=== PATIENT | female | born 1940 | race Caucasian/White ===

== ENCOUNTER 2017-01-23 15:52 | Inpatient (IN) | payer MEDICARE, OTHER ==
--- NOTE | ~2017-01-23 | OP ---
Record Of Operation [facility] [address] [address] NAME: STEFANIA COLES : [birth year] STATUS : ADM Christoph PAT#: [id number] AGE: 76 ADM/REG DATE : 01/23/17 MR#: [id number] REPORT SERV DATE: 01/24/17 DICTATED BY: SOHAN MARKHAM DATE: 01/24/17 REPORT STATUS : Draft TRANSCRIBED BY: MODL DATE: 01/24/17 DATE OF PROCEDURE: 01/23/2017 INDICATIONS: Acute gastrointestinal bleeding and shock. PROCEDURE IN DETAIL: After informed consent was obtained from the patient's , procedure was performed in the emergency room on an emergent basis. The left chest was prepared with chlorhexidine. The patient was completely draped, and using an Arrow triple-lumen catheter kit, triple-lumen catheter was placed over a guidewire in the left subclavian vein in the usual fashion. The vein was entered without any difficulty or bleeding. The lines were flushed, and catheter was secured in place. The patient tolerated the procedure well. There were no complications. We will check a postprocedure chest x-ray, which has been ordered already. /SHAMIKA Sohan Markham M.D. / [id number]
--- NOTE | ~2017-01-23 | EGD ---
EGD REPORT [facility] [address] [address] NAME: STEFANIA RIVER : 42 STATUS : ADM IN PAT#: [id number] AGE: 76 ADM/REG DATE : 01/24/17 MR#: [id number] REPORT SERV DATE: 01/27/17 DICTATED BY: RICARDO CHOW III DATE: 01/27/17 REPORT STATUS : Draft [facility]: [facility] DATE: 01/27/17 Endoscopy Center Patient Name: Stefania River Date of : 1940 Attending MD: RICARDO CHOW III, MD Procedure Date No Time: 01/24/2017 Procedure: Upper GI endoscopy Indications: Acute post hemorrhagic anemia, Hematemesis Medicines: Propofol per Anesthesia, General Anesthesia Complications: No immediate complications. Procedure: After obtaining informed consent, the endoscope was passed under direct vision. Throughout the procedure, the patient's blood pressure, pulse, and oxygen saturations were monitored continuously. The GIF H190 [id number] was introduced through the mouth, and advanced to the third part of duodenum. The upper GI endoscopy was accomplished with ease. The patient tolerated the procedure well. Findings: LA Grade D (one or more mucosal breaks involving at least 75% of esophageal circumference) esophagitis with no bleeding was found in the entire esophagus. A medium-sized hiatus hernia was present. Diffuse mildly erythematous mucosa without bleeding was found in the gastric antrum. Biopsies were taken with a cold forceps for histology. One non-bleeding cratered duodenal ulcer with pigmented material was found in the second part of the duodenum. The lesion was 20 mm in largest dimension. Biopsies were taken with a cold forceps for histology. Impression: - LA Grade D reflux esophagitis. - Hiatus hernia. - Erythematous mucosa in the antrum. Biopsied. - One duodenal ulcer. Biopsied. Recommendation: - Await pathology results. Procedure Code(s): --- Professional --- 40476, Esophagogastroduodenoscopy, flexible, transoral; with biopsy, single or multiple Diagnosis Code(s): --- Professional --- K21.0, Gastro-esophageal reflux disease with esophagitis K44.9, Diaphragmatic hernia without obstruction or gangrene EGD REPORT [address] [address] NAME: STEFANIA RIVER : [birth year] STATUS : ADM IN [facility]#: [id number] AGE: 76 ADM/REG DATE : 01/24/17 MR#: [id number] REPORT SERV DATE: 01/27/17 DICTATED BY: RICARDO CHOW III DATE: 01/27/17 REPORT STATUS : Draft TRANSCRIBED BY: [employer] DATE: 01/27/17 K31.9, Disease of stomach and duodenum, unspecified K26.9, Duodenal ulcer, unspecified as acute or chronic, without hemorrhage or perforation D62, Acute posthemorrhagic anemia K92.0, Hematemesis CPT copyright 2013 [employer] [place] [employer]. All rights reserved. The codes documented in this report are preliminary and upon wellfield technician review may be revised to meet current compliance requirements. RICARDO CHOW III, MD 01/24/2017 2:10 AM This report has been signed electronically. Number of Addenda: 0 Note Initiated On: 01/24/2017 1:35 AM Scope Withdrawal Time 0 hours 0 minutes 0 seconds [address] [place] [address]
--- NOTE | ~2017-01-23 | EGD ---
EGD REPORT [facility] [address] [address] NAME: STEFANIA RIVER : 42 STATUS : ADM Christoph PAT#: [id number] AGE: 76 ADM/REG DATE : 01/23/17 MR#: [id number] REPORT SERV DATE: 01/24/17 DICTATED BY: RICARDO CHOW III DATE: 01/24/17 REPORT STATUS : Draft [facility] DATE: 01/24/17 Endoscopy Center Patient Name: Stefania River Date of : 1940 Attending MD: RICARDO CHOW III, MD Procedure Date No Time: 01/24/2017 Procedure: Upper GI endoscopy Indications: Acute post hemorrhagic anemia, Hematemesis Medicines: Propofol per Anesthesia, General Anesthesia Complications: No immediate complications. Procedure: After obtaining informed consent, the endoscope was passed under direct vision. Throughout the procedure, the patient's blood pressure, pulse, and oxygen saturations were monitored continuously. The GIF H190 [id number] was introduced through the mouth, and advanced to the third part of duodenum. The upper GI endoscopy was accomplished with ease. The patient tolerated the procedure well. Findings: LA Grade D (one or more mucosal breaks involving at least 75% of esophageal circumference) esophagitis with no bleeding was found in the entire esophagus. A medium-sized hiatus hernia was present. Diffuse mildly erythematous mucosa without bleeding was found in the gastric antrum. Biopsies were taken with a cold forceps for histology. One non-bleeding cratered duodenal ulcer with pigmented material was found in the second part of the duodenum. The lesion was 20 mm in largest dimension. Biopsies were taken with a cold forceps for histology. Impression: - LA Grade D reflux esophagitis. - Hiatus hernia. - Erythematous mucosa in the antrum. Biopsied. - One duodenal ulcer. Biopsied. Recommendation: - Await pathology results. Procedure Code(s): --- Professional --- 48928, Esophagogastroduodenoscopy, flexible, transoral; with biopsy, single or multiple Diagnosis Code(s): --- Professional --- K21.0, Gastro-esophageal reflux disease with esophagitis K44.9, Diaphragmatic hernia without obstruction or gangrene EGD REPORT [address] [address] NAME: STEFANIA RIVER : 42 STATUS : ADM Christoph PAT#: [id number] AGE: 76 ADM/REG DATE : 01/23/17 MR#: [id number] REPORT SERV DATE: 01/24/17 DICTATED BY: RICARDO HCOW III DATE: 01/24/17 REPORT STATUS : Draft TRANSCRIBED BY: [employer] DATE: 01/24/17 K31.9, Disease of stomach and duodenum, unspecified K26.9, Duodenal ulcer, unspecified as acute or chronic, without hemorrhage or perforation D62, Acute posthemorrhagic anemia K92.0, Hematemesis CPT copyright 2013 [employer]. All rights reserved. The codes documented in this report are preliminary and upon impregnating machine operator review may be revised to meet current compliance requirements. RICARDO CHOW III, MD 01/24/2017 2:10 AM This report has been signed electronically. Number of Addenda: 0 Note Initiated On: 01/24/2017 1:35 AM Scope Withdrawal Time 0 hours 0 minutes 0 seconds [address] [place] [address]
--- NOTE | ~2017-01-23 | DS ---
Discharge Summary [place] [address] [facility] [place]. [address] NAME: STEFANIA COLES : 42 STATUS : DIS IN PAT#: [id number] AGE: 76 ADM/REG DATE : 01/24/17 MR#: [id number] REPORT SERV DATE: 01/28/17 DICTATED BY: CLEMENTE BLACK DATE: 01/27/17 REPORT STATUS : Draft TRANSCRIBED BY: MODCodie DATE: 01/27/17 ADMISSION DATE: 01/24/2017 DISCHARGE DATE: 01/27/2017 PROCEDURES DONE: 1. On 01/23/2017 chest x-ray: Lungs are clear. Heart size is normal. 2. On 01/23/2017 CT abdomen and pelvis: No acute abdominal or pelvic pathology. No bowel obstruction. Moderate size hiatal hernia. Percutaneous gastrostomy tube in satisfactory position. Moderate diverticulosis. Sigmoid colon, no acute diverticulitis pattern. Nonvisualized gallbladder. Probable chronic mild osteonecrosis superior right femoral head, although well preserved femoral head contour. Nonvisualized gallbladder. Motion artifact lower chest and upper mid abdomen, been hardening artifact from the patient's arms by her side. 3. On 01/24/2017 chest x-ray: Left cervical central line catheter in place. Appearing to be in satisfactory position. No postprocedure pneumothorax seen. Bibasilar atelectasis and probable left pleural fluid. Atherosclerotic change of the thoracic aorta. 4. On 01/27/2017 chest x-ray: Internal development with mild left basilar consolidation with atelectasis with trace left pleural effusion. Interval removal of left subclavian central venous catheter. No pneumothorax. 5. On 01/28/2017 upper endoscopy:. 6. Findings: LA grade D one or more mucosal breaks involving at least 75% of esophageal circumference esophagitis with no bleeding was found in the entire esophagus. Medium- sized hiatal hernia present. Diffuse mildly erythematous mucosa without bleeding was found in the gastric antrum. Biopsies taken with cold forceps for histology. One nonbleeding crater duodenal ulcer with pigmented material was found in the second part of duodenum. The lesion was 20 mm in largest dimension. Biopsies were taken with cold forceps for histology. CONSULTS: Gianfranco Edmondson M.D. for GI REASON FOR ADMISSION: Vomiting dark-maroonish blood. HISTORY OF PRESENT ILLNESS: A 76-year-old white female with past medical history of CVA x3, chronic respiratory failure status post trach, COPD, hypertension, hyperlipidemia, status post PEG, presenting with vomiting dark-maroonish blood, unknown duration. The patient was admitted for further evaluation of upper GI bleed. Dr. Edmondson was consulted for GI and the patient underwent an EGD. The patient was previously had an EGD done at [facility] showing duodenal ulcer. An EGD was done by Dr. Edmondson at [facility] shows the same duodenal ulcer, but no active bleeding. Furthermore, the patient's endoscopy shows grade D esophageal circumference esophagitis, but no bleeding at all. Even noted duodenal ulcer was present, it did not have any bleed. Biopsies were taken. During the hospital stay, the patient's H and H has been stable. GI felt the patient can be safely discharged and follow up as an outpatient. DISPOSITION: The patient feels fine, no complaint. Discharge Summary [address] [address] NAME: STEFANIA COLES : 42 STATUS : DIS IN PAT#: [id number] AGE: 76 ADM/REG DATE : 01/24/17 MR#: [id number] REPORT SERV DATE: 01/28/17 DICTATED BY: CLEMENTE BLACK DATE: 01/27/17 REPORT STATUS : Draft TRANSCRIBED BY: SHAMIKA DATE: 01/27/17 ACTIVITY: As tolerated. DIET: Via PEG. INSTRUCTIONS UPON DISCHARGE: The patient will follow up with GI within two weeks' time. MEDICATIONS UPON DISCHARGE: 1. Plaquenil 200 mg p.o. daily. 2. Lopressor 50 mg p.o. b.i.d. 3. Carafate 1 g/10 mL suspension p.o. q.6 hours. 4. Prevacid 30 mg via PEG b.i.d. 5. Prednisone 5 mg p.o. daily. 6. DuoNeb inhaler p.r.n. 7. Vitamin C 500 mg p.o. daily. DIAGNOSES UPON DISCHARGE: 1. Vomiting dark blood secondary to esophagitis grade D. 2. Esophagitis grade D. 3. Duodenal ulcer. 4. History of cerebrovascular accident x3. 5. Chronic respiratory failure status post trach. 6. Chronic obstructive pulmonary disease. 7. Hypertension. 8. Hyperlipidemia. 9. Status post PEG. FBJ/MODL Clemente Black MD / [id number] CC: MD Aram Cortez M.D.
--- NOTE | ~2017-01-23 | HP ---
History And Physical [place] [address] [facility] [place]. [address] NAME: STEFANIA COLES : 42 STATUS : ADM Christoph PAT#: [id number] AGE: 76 ADM/REG DATE : 01/23/17 MR#: [id number] REPORT SERV DATE: 01/24/17 DICTATED BY: SOHAN WATSON DATE: 01/24/17 REPORT STATUS : Draft TRANSCRIBED BY: MODL DATE: 01/24/17 DATE OF ADMISSION: 01/23/2017 CHIEF COMPLAINT: Vomiting dark maroonish blood. HISTORY OF PRESENT ILLNESS: This is a 76-year-old female, who has had a very significant past medical history, has had massive CVA 3 years ago followed by respiratory failure needing a tracheostomy. Since then, she has had contractions of her body and about two to three weeks ago she was taken to [place] with similar complaints of vomiting dark bloody material. She had been seen by Gastroenterology there and had upper endoscopy and had a duodenal ulcer. This had been cauterized. This was all from the patient's , we are still waiting on records from [place] to reach us. Since discharge from there, she had been doing well until today, she suddenly started having emesis of dark reddish appearing bloody material. He knew what was going on and brought the patient to the emergency room here. In the emergency room, the vomitus and her stools were gastroccult positive and Hemoccult positive, and Hospitalist Service is asked to admit her for further evaluation and treatment. At the time of my evaluation the patient was alert and awake, but not very communicative, which is her usual state. According to her , she has not had any chest pain or palpitations. She does not have any respiratory difficulty, although she has copious amounts of greenish secretion with cough coming out of her tracheostomy stoma. She has had no fevers, night sweats, or weight loss. She has not had any recent falls or loss of consciousness. No history of nausea, vomiting. She did have vomiting as described above early this morning of dark maroonish blood. No history of hematemesis or hematochezia. No other history of recent travel or exposures. PAST MEDICAL HISTORY: Significant for history of CVA 3 years ago followed by respiratory failure requiring tracheostomy. She had a prolonged course after that and has had spastic contractures in her body. She has COPD, history of alcohol use in the past, history of hypertension, hyperlipidemia, has a PEG tube placed, and has a history of hiatal hernia as well. SOCIAL HISTORY: She does not smoke, drink, or use recreational drugs at this time. FAMILY HISTORY: Noncontributory. MEDICATIONS: At home were reviewed by me in the chart today and reordered by me. REVIEW OF SYSTEMS: As in history of present illness. All other systems were reviewed in detail and are quite unremarkable. PHYSICAL EXAMINATION: GENERAL: This is a pleasant 76-year-old, not in any acute distress. She is not verbal. She does not follow any commands. She is noncommunicative. History And Physical [address] [address] NAME: STEFANIA COLES : 42 STATUS : ADM Christoph PAT#: [id number] AGE: 76 ADM/REG DATE : 01/23/17 MR#: [id number] REPORT SERV DATE: 01/24/17 DICTATED BY: SOHAN WATSON DATE: 01/24/17 REPORT STATUS : Draft TRANSCRIBED BY: SHAMIKA DATE: 01/24/17 HEENT: Head appears to be atraumatic, normocephalic. NECK: Supple with no jugular venous distention, lymphadenopathy, or thyromegaly. Pupils were equal, reacting to light and accommodating. LUNGS: Auscultation of her lungs revealed fair air entry bilaterally with no wheezes, rubs, or crackles. HEART: Heart sounds were regular with no murmurs, rubs, or gallops. ABDOMEN: Soft. Bowel sounds are present. EXTREMITIES: Extremities are all in protective supports to prevent ulceration. She, however, has a drain in the right elbow to a wound VAC for decubitus ulcers. NEUROLOGIC: As mentioned above. She does not communicate or follow commands. Her vital signs today showed temperature of 97.1 degrees upon arrival, respirations were 16 a minute, and heart rate was 99 a minute. Blood pressure upon arrival was 118/57, and oxygen saturations were 94% breathing 2-3 L via nasal cannula. LABORATORY DATA: Reviewed on the [employer] system showed a pH of 7.52, pCO2 was 31, PaO2 of 66 and bicarb was 24.8. This was on 2 L of oxygen via nasal cannula. Sodium is 136, potassium 4.5, chloride 98, and CO2 of 27, BUN was 47 with a creatinine of 1.24. Her blood glucose was 91. [place] [address], hemoglobin was 9.8, hematocrit 29.8, and platelet count was 606,000. Urinalysis did not reveal any gross pathology. Films of the chest x-ray were reviewed by me on the PACS today and also her CT of the abdomen and pelvis were also reviewed. Per my interpretation the chest x-ray showed normal bony architecture with no cardiomegaly. There are chronic interstitial markings without any infiltrates or pleural effusions seen. CT of the abdomen and pelvis did not reveal any acute pathology. There is a PEG tube placed and moderate hiatal hernia seen as well. IMPRESSION: 1. Acute gastrointestinal bleeding. 2. Peptic ulcer disease, had a recent EGD at [place] showing duodenal ulcer. 3. Leukocytosis. 4. Osteoarthritis. 5. Chronic obstructive pulmonary disease. 6. Essential hypertension. 7. Hyperlipidemia. 8. Hiatal hernia. PLAN: We will admit the patient to the Medical Intermediate Care Unit for close monitoring. While here she continued to have bloody emesis twice even when I was in the room with her. Her vital signs remained stable even after this, so we did a stat a hemoglobin and hematocrit level. It had dropped from 11.2 to 9.6 today in a very short time. I decided to call Gastroenterology on-call and spoke with Dr. Edmondson, who decided to come to come in right away. She needed a better IV access placed and possibly taken for endoscopy right away. He was also interested in protecting her airway, if she were to have more emesis. Meanwhile, we will type cross and transfuse as needed. Her leukocytosis is of unclear etiology. It could be from the GI bleed itself, but we will go ahead and obtain cultures and start her on vancomycin and Zosyn right away. We will also start her on blood pressure control and SCDs for DVT prophylaxis. We will also start a Protonix infusion at this time after the bolus. History And Physical [address] [place] [address] NAME: STEFANIA COLES KATI : 44 STATUS : ADM Christoph PAT#: [id number] AGE: 76 ADM/REG DATE : 01/23/17 MR#: [id number] REPORT SERV DATE: 01/24/17 DICTATED BY: SOHAN WATSON DATE: 01/24/17 REPORT STATUS : Draft TRANSCRIBED BY: SHAMIKA DATE: 01/24/17 She will be kept n.p.o. After discussions with Dr. Edmondson, the patient was transferred to a bigger room in the emergency room, so central line could be placed. I did explain all of this to the patient's , who was following closely understanding what was going on and asking appropriate questions. His questions were answered and he is agreeable to the above recommendations. Please see today's orders for details. Hospitalist Service will be following the patient during her stay here. Total critical care time spent with the patient was 60 minutes. /SHAMIKA Sohan Watson M.D. / [id number] CC: MD Aram Cortez M.D.
[2017-01-23 16:48] LABS: BASOPHILS 0.4 %; BASOPHILS ABSOLUTE 0.07 10/3/uL (0.0-0.16); EOSINOPHILS 0.5 %; EOSINOPHILS ABSOLUTE 0.09 10/3/uL (0.0-0.53); ER CBC TAT 0 Hrs 09 Mins; HEMATOCRIT 34.4 % (36.0-48.0); HEMOGLOBIN 11.2 g/dL (12.0-16.0); IMMATURE GRANULOCYTES 0.5 %; IMMATURE GRANULOCYTES ABSOLUTE 0.09 10/3/uL (0.0-0.11); LYMPHOCYTES 6.3 %; MANUAL DIFF NO %; MEAN CORPUS HGB CONC 32.6 g/dL (32.0-36.0); MEAN CORPUSCULAR HEMOGLOB 28.6 pg (26.0-34.0); MEAN PLATELET VOLUME 8.2 fL (9.2-13.0); MONOCYTES ABSOLUTE 1.72 10/3/uL (0.21-1.20); NEUTROPHILS 83.3 %; NEUTROPHILS ABSOLUTE 15.96 10/3/uL (2.02-8.40); PLATELET COUNT 606 10/3/uL (150-400); RBC DISTRIBUTION WIDTH 15.3 % (12.0-16.0); RED CELL COUNT 3.91 10/6/uL (4.0-5.6); WHITE BLOOD CELLS 19.1 10/3/uL (4.5-10.5)
[2017-01-23 16:59] LABS: A/G RATIO 0.5 (0.7-1.9); ALBUMIN 2.3 G/DL (3.5-5.0); ALKALINE PHOSPHATASE 109 U/L (45-117); BUN (BLOOD UREA NITROGEN) 47 MG/DL (6-23); CALCIUM, SERUM 8.4 MG/DL (8.5-10.4); CHLORIDE, SERUM 98 MMOL/L (96-112); CO2 (CARBON DIOXIDE) 27 MMOL/L (24-34); CREATININE 1.24 MG/DL (0.55-1.02); GFR AFRICAN AMERICAN 50 ML/MIN (>=60); GFR NON AFRICAN AMERICAN 43 ML/MIN (>=60); GLOBULIN 4.4 G/DL (2.5-4.1); GLUCOSE, SERUM 91 MG/DL (60-99); POTASSIUM, SERUM 4.5 MMOL/L (3.5-5.3); SGOT(AST) 18 U/L (5-40); SGPT(ALT) 22 U/L (5-65); SODIUM, SERUM 136 MMOL/L (135-148); TOTAL BILIRUBIN 0.4 MG/DL (0-1.2); TOTAL PROTEIN 6.7 G/DL (6.0-8.5)
[2017-01-23 17:07] LABS: BAND NEUTROPHILS 3 %; BASOPHILS 1 %; BASOPHILS ABSOLUTE (CALC) 0.19 10/3/uL (0.0-0.16); ER DIFF TAT 0 Hrs 28 Mins; LYMPHOCYTES 2 %; LYMPHOCYTES ABSOLUTE (CALC) 0.38 10/3/uL (0.67-4.30); MONOCYTES 3 %; MONOCYTES ABSOLUTE (CALC) 0.57 10/3/uL (0.21-1.20); NEUTROPHILS ABSOLUTE (CALC) 17.95 10/3/uL (2.02-8.40); PLATELET ESTIMATE INC (ADEQUATE); SEGMENTED NEUTROPHIL (0) 91 %; TOTAL NUCLEATED CELLS 100
[2017-01-23 17:09] LABS: MACROCYTES 1+ (5-10/OIF) (0-5/OIF)
[2017-01-23 19:31] LABS: BE (BASE EXCESS) 2.3 MEQ/L (0 +/- 2.5); CARBOXYHEMOGLOBIN 1.2 % (0-3); DEVICE NC; HCO3 (ACTUAL BICARBONATE) 24.8 MEQ/L (23-27); HEMOBLOGIN CONTENT 10.8 G/DL (12-16); INSTRUMENT SERIAL # 8087; METHEMOGLOBIN 0.2 % (0-3); O2 CONTENT 13.9 VOL% (18-24); OPERATOR ID 334499; PCO2 (CO2 TENSION) 31 MMHG (35-45); PO2 (O2 TENSION) 66 MMHG (79-93); SAMPLE Arterial; pH 7.52 (7.37-7.43)
[2017-01-23 19:57] LABS: LACTATE 0.8 MMOL/L (0.3-2.4)
[2017-01-23 20:08] LABS: PROCALCITONIN 0.17 ng/mL (<0.5)
[2017-01-23 20:14] LABS: ASCORBIC ACID (UR NOT ORDER) 40 (NEG); BILIRUBIN, URINE NEGATIVE (NEG); KETONE, URINE NEGATIVE (NEG); NITRITE (URINE) NEG (NEG); WBC (NOT ORDERED) (RFLEX) 4 (0-5)
[2017-01-23 20:17] LABS: LEUKOCYTE ESTERASE(NOT OR TRACE (NEG)
[2017-01-23] MEDS ORDERED: BACDS PEG (23:12)
[2017-01-23] MEDS ORDERED: P5 PO (23:15)
[2017-01-23] MEDS ORDERED: VITC500 PO (23:15)
[2017-01-23] MEDS ORDERED: DUONEB INH (23:15)
[2017-01-23] MEDS ORDERED: LOP50 PO (23:16)
[2017-01-23] MEDS ORDERED: ZOCOR20 PO (23:16)
[2017-01-23] MEDS ORDERED: PLAQ200B PO (23:17)
[2017-01-23 23:45] LABS: HEMOGLOBIN 9.8 g/dL (12.0-16.0)
[2017-01-23 23:47] LABS: HEMATOCRIT 29.8 % (36.0-48.0)
[2017-01-24 06:04] LABS: BASOPHILS 0.3 %; BASOPHILS ABSOLUTE 0.04 10/3/uL (0.0-0.16); EOSINOPHILS 0.7 %; HEMOGLOBIN 8.7 g/dL (12.0-16.0); IMMATURE GRANULOCYTES 0.5 %; IMMATURE GRANULOCYTES ABSOLUTE 0.07 10/3/uL (0.0-0.11); LYMPHOCYTES 9.7 %; LYMPHOCYTES ABSOLUTE 1.38 10/3/uL (0.67-4.30); MEAN CORPUS HGB CONC 33.1 g/dL (32.0-36.0); MEAN CORPUSCULAR HEMOGLOB 29.1 pg (26.0-34.0); MEAN PLATELET VOLUME 8.1 fL (9.2-13.0); MONOCYTES 7.8 %; MONOCYTES ABSOLUTE 1.11 10/3/uL (0.21-1.20); NEUTROPHILS ABSOLUTE 11.54 10/3/uL (2.02-8.40); PLATELET COUNT 452 10/3/uL (150-400); RBC DISTRIBUTION WIDTH 15.5 % (12.0-16.0); WHITE BLOOD CELLS 14.2 10/3/uL (4.5-10.5)
[2017-01-24 06:05] LABS: HEMATOCRIT 26.3 % (36.0-48.0); MANUAL DIFF NO %; RED CELL COUNT 2.99 10/6/uL (4.0-5.6)
[2017-01-24 06:12] LABS: CHLORIDE, SERUM 109 MMOL/L (96-112); CO2 (CARBON DIOXIDE) 24 MMOL/L (24-34); GFR AFRICAN AMERICAN 57 ML/MIN (>=60); GFR NON AFRICAN AMERICAN 49 ML/MIN (>=60); PHOSPHORUS, SERUM 3.6 MG/DL (2.5-4.5); POTASSIUM, SERUM 4.2 MMOL/L (3.5-5.3)
[2017-01-24 06:14] LABS: BUN (BLOOD UREA NITROGEN) 43 MG/DL (6-23); CALCIUM, SERUM 7.2 MG/DL (8.5-10.4); GLUCOSE, SERUM 67 MG/DL (60-99); SODIUM, SERUM 143 MMOL/L (135-148)
[2017-01-24 10:08] LABS: HEMATOCRIT 26.9 % (36.0-48.0); HEMOGLOBIN 8.8 g/dL (12.0-16.0)
[2017-01-24 14:30] LABS: A/G RATIO 0.5 (0.7-1.9); ALBUMIN 1.8 G/DL (3.5-5.0); ALKALINE PHOSPHATASE 83 U/L (45-117); GLOBULIN 3.6 G/DL (2.5-4.1); PREALBUMIN 17.9 MG/DL (17.0-43.0); SGOT(AST) 20 U/L (5-40); SGPT(ALT) 19 U/L (5-65); TOTAL BILIRUBIN 0.4 MG/DL (0-1.2); TOTAL PROTEIN 5.4 G/DL (6.0-8.5)
[2017-01-24 16:12] LABS: HEMATOCRIT 25.6 % (36.0-48.0); HEMOGLOBIN 8.3 g/dL (12.0-16.0)
[2017-01-24 22:28] LABS: HEMATOCRIT 25.6 % (36.0-48.0); HEMOGLOBIN 8.3 g/dL (12.0-16.0)
[2017-01-25 04:58] LABS: BASOPHILS 0.3 %; BASOPHILS ABSOLUTE 0.04 10/3/uL (0.0-0.16); EOSINOPHILS 1.8 %; EOSINOPHILS ABSOLUTE 0.22 10/3/uL (0.0-0.53); HEMATOCRIT 26.6 % (36.0-48.0); HEMOGLOBIN 8.5 g/dL (12.0-16.0); IMMATURE GRANULOCYTES 0.3 %; IMMATURE GRANULOCYTES ABSOLUTE 0.03 10/3/uL (0.0-0.11); LYMPHOCYTES 9.7 %; LYMPHOCYTES ABSOLUTE 1.15 10/3/uL (0.67-4.30); MEAN CORPUSCULAR HEMOGLOB 28.4 pg (26.0-34.0); MEAN PLATELET VOLUME 8.2 fL (9.2-13.0); MONOCYTES 11.2 %; MONOCYTES ABSOLUTE 1.33 10/3/uL (0.21-1.20); NEUTROPHILS 76.7 %; NEUTROPHILS ABSOLUTE 9.14 10/3/uL (2.02-8.40); PLATELET COUNT 465 10/3/uL (150-400); RBC DISTRIBUTION WIDTH 15.4 % (12.0-16.0); RED CELL COUNT 2.99 10/6/uL (4.0-5.6); WHITE BLOOD CELLS 11.9 10/3/uL (4.5-10.5)
[2017-01-25 04:59] LABS: MANUAL DIFF NO %
[2017-01-25 05:18] LABS: A/G RATIO 0.5 (0.7-1.9); ALBUMIN 1.8 G/DL (3.5-5.0); ALKALINE PHOSPHATASE 80 U/L (45-117); CALCIUM, SERUM 7.4 MG/DL (8.5-10.4); CHLORIDE, SERUM 112 MMOL/L (96-112); CO2 (CARBON DIOXIDE) 21 MMOL/L (24-34); CREATININE 0.75 MG/DL (0.55-1.02); GFR AFRICAN AMERICAN 91 ML/MIN (>=60); GFR NON AFRICAN AMERICAN 79 ML/MIN (>=60); GLOBULIN 3.6 G/DL (2.5-4.1); POTASSIUM, SERUM 4.3 MMOL/L (3.5-5.3); SGOT(AST) 17 U/L (5-40); SGPT(ALT) 16 U/L (5-65); SODIUM, SERUM 144 MMOL/L (135-148); TOTAL BILIRUBIN 0.5 MG/DL (0-1.2); TOTAL PROTEIN 5.4 G/DL (6.0-8.5)
[2017-01-25 05:22] LABS: BUN (BLOOD UREA NITROGEN) 23 MG/DL (6-23); GLUCOSE, SERUM 95 MG/DL (60-99); PHOSPHORUS, SERUM 1.7 MG/DL (2.5-4.5)
[2017-01-26 05:02] LABS: BASOPHILS 0.3 %; BASOPHILS ABSOLUTE 0.03 10/3/uL (0.0-0.16); EOSINOPHILS 2.4 %; EOSINOPHILS ABSOLUTE 0.21 10/3/uL (0.0-0.53); HEMATOCRIT 25.8 % (36.0-48.0); HEMOGLOBIN 8.3 g/dL (12.0-16.0); IMMATURE GRANULOCYTES 0.2 %; IMMATURE GRANULOCYTES ABSOLUTE 0.02 10/3/uL (0.0-0.11); LYMPHOCYTES 12.1 %; LYMPHOCYTES ABSOLUTE 1.07 10/3/uL (0.67-4.30); MEAN CORPUS HGB CONC 32.2 g/dL (32.0-36.0); MEAN CORPUSCULAR HEMOGLOB 28.7 pg (26.0-34.0); MEAN CORPUSCULAR VOLUME 89.3 fL (80-100); MEAN PLATELET VOLUME 7.9 fL (9.2-13.0); MONOCYTES 13.6 %; NEUTROPHILS 71.4 %; NEUTROPHILS ABSOLUTE 6.29 10/3/uL (2.02-8.40); PLATELET COUNT 400 10/3/uL (150-400); RBC DISTRIBUTION WIDTH 15.2 % (12.0-16.0); RED CELL COUNT 2.89 10/6/uL (4.0-5.6); WHITE BLOOD CELLS 8.8 10/3/uL (4.5-10.5)
[2017-01-26 05:05] LABS: MANUAL DIFF NO %
[2017-01-26 05:18] LABS: A/G RATIO 0.5 (0.7-1.9); ALBUMIN 1.7 G/DL (3.5-5.0); ALKALINE PHOSPHATASE 75 U/L (45-117); CALCIUM, SERUM 7.2 MG/DL (8.5-10.4); CHLORIDE, SERUM 110 MMOL/L (96-112); CO2 (CARBON DIOXIDE) 24 MMOL/L (24-34); GFR AFRICAN AMERICAN 99 ML/MIN (>=60); GFR NON AFRICAN AMERICAN 85 ML/MIN (>=60); GLOBULIN 3.4 G/DL (2.5-4.1); PHOSPHORUS, SERUM 1.6 MG/DL (2.5-4.5); POTASSIUM, SERUM 3.8 MMOL/L (3.5-5.3); SGOT(AST) 16 U/L (5-40); SGPT(ALT) 14 U/L (5-65); SODIUM, SERUM 142 MMOL/L (135-148); TOTAL BILIRUBIN 0.4 MG/DL (0-1.2); TOTAL PROTEIN 5.1 G/DL (6.0-8.5)
[2017-01-26 05:24] LABS: BUN (BLOOD UREA NITROGEN) 16 MG/DL (6-23); GLUCOSE, SERUM 120 MG/DL (60-99)
[2017-01-26 18:56] LABS: BUN (BLOOD UREA NITROGEN) 14 MG/DL (6-23); CALCIUM, SERUM 7.2 MG/DL (8.5-10.4); CHLORIDE, SERUM 108 MMOL/L (96-112); CO2 (CARBON DIOXIDE) 23 MMOL/L (24-34); CREATININE 0.63 MG/DL (0.55-1.02); GFR AFRICAN AMERICAN 102 ML/MIN (>=60); GFR NON AFRICAN AMERICAN 88 ML/MIN (>=60); GLUCOSE, SERUM 119 MG/DL (60-99); POTASSIUM, SERUM 4.3 MMOL/L (3.5-5.3); SODIUM, SERUM 140 MMOL/L (135-148)
[2017-01-27 04:58] LABS: HEMATOCRIT 25.7 % (36.0-48.0); HEMOGLOBIN 8.3 g/dL (12.0-16.0); MEAN CORPUS HGB CONC 32.3 g/dL (32.0-36.0); MEAN CORPUSCULAR HEMOGLOB 27.9 pg (26.0-34.0); MEAN PLATELET VOLUME 7.9 fL (9.2-13.0); PLATELET COUNT 386 10/3/uL (150-400); RED CELL COUNT 2.97 10/6/uL (4.0-5.6); WHITE BLOOD CELLS 10.8 10/3/uL (4.5-10.5)
[2017-01-27 04:59] LABS: MANUAL DIFF YES %; MEAN CORPUSCULAR VOLUME 86.5 fL (80-100)
[2017-01-27 05:27] LABS: EOSINOPHILS 2 %; EOSINOPHILS ABSOLUTE (CALC) 0.22 10/3/uL (0.0-0.53); LYMPHOCYTES 10 %; LYMPHOCYTES ABSOLUTE (CALC) 1.08 10/3/uL (0.67-4.30); MONOCYTES 7 %; MONOCYTES ABSOLUTE (CALC) 0.76 10/3/uL (0.21-1.20); NEUTROPHILS ABSOLUTE (CALC) 8.75 10/3/uL (2.02-8.40); PLATELET ESTIMATE ADQ (ADEQUATE); RBC MORPHOLOGY NORM (NORMAL); SEGMENTED NEUTROPHIL (0) 81 %; TOTAL NUCLEATED CELLS 100
[2017-01-27 07:46] LABS: A/G RATIO 0.5 (0.7-1.9); ALBUMIN 1.7 G/DL (3.5-5.0); ALKALINE PHOSPHATASE 80 U/L (45-117); BUN (BLOOD UREA NITROGEN) 13 MG/DL (6-23); CALCIUM, SERUM 7.3 MG/DL (8.5-10.4); CHLORIDE, SERUM 108 MMOL/L (96-112); CO2 (CARBON DIOXIDE) 23 MMOL/L (24-34); CREATININE 0.66 MG/DL (0.55-1.02); GFR AFRICAN AMERICAN 101 ML/MIN (>=60); GFR NON AFRICAN AMERICAN 87 ML/MIN (>=60); GLOBULIN 3.6 G/DL (2.5-4.1); GLUCOSE, SERUM 135 MG/DL (60-99); PHOSPHORUS, SERUM 1.9 MG/DL (2.5-4.5); POTASSIUM, SERUM 4.2 MMOL/L (3.5-5.3); SGOT(AST) 14 U/L (5-40); SGPT(ALT) 14 U/L (5-65); SODIUM, SERUM 140 MMOL/L (135-148); TOTAL BILIRUBIN 0.4 MG/DL (0-1.2); TOTAL PROTEIN 5.3 G/DL (6.0-8.5)
[2017-01-27] MEDS ORDERED: PREV30 PO (16:35)
[2017-01-27] MEDS ORDERED: CARASPUDL PO (16:35)
[2017-05-05] MEDS ORDERED: ACET500CAP PEG (11:38)
[2017-05-05] MEDS ORDERED: KLOR-CON20 MEQ PEG (11:39)
[2017-05-05] MEDS ORDERED: PLAQ200B PEG (11:40)
[2017-05-05] MEDS ORDERED: PREDNISONE2.5 MG PEG (11:40)
[2017-05-05] MEDS ORDERED: VITC500 PEG (11:41)
[2017-05-05] MEDS ORDERED: LOP50 PEG (11:41)
[2017-05-05] MEDS ORDERED: SUCR PO (11:41)
[2017-05-05] MEDS ORDERED: FOLIC PEG (11:41)
[2017-05-05] MEDS ORDERED: DUONEB INH (11:42)
[2017-05-05] MEDS ORDERED: ZOCOR20 PEG (11:43)
[2017-05-05] MEDS ORDERED: FLORASTOR250 MG PO (11:44)
== END 2017-01-27 17:41 | disposition home health service (06) | DRG 378 ==
LOC: ER 15:52 → 4SO 23:22 → IMCU 23:47 → 5NO 01-26 16:22
PROVIDERS: Emergency Medicine; Hospitalist; Internal Medicine Gastroenterology; Internal Medicine Pulmonary Disease; Nurse Practitioner Family
PROC: 0DB98ZX Excision of Duodenum, Via Natural or Artificial Opening Endoscopic, Diagnostic (ICD-10-PCS; principal; 2017-01-24 02:01)
DX: K26.4 Chronic or unspecified duodenal ulcer with hemorrhage (principal); D62 Acute posthemorrhagic anemia; R57.9 Shock, unspecified; J96.10 Chronic respiratory failure, unspecified whether with hypoxia or hypercapnia; K21.0 Gastro-esophageal reflux disease with esophagitis; K44.9 Diaphragmatic hernia without obstruction or gangrene; K31.9 Disease of stomach and duodenum, unspecified; J44.9 Chronic obstructive pulmonary disease, unspecified; E78.5 Hyperlipidemia, unspecified; M19.90 Unspecified osteoarthritis, unspecified site; Z79.52 Long term (current) use of systemic steroids
CPT/HCPCS: 36415; 36600; 71010; 74176; 80048; 80053; 80202; 81001; 82805; 82962; 83605; 83690; 83735; 84100; 84134; 84145; 85014; 85018; 85025; 86850; 86900; 86901; 86905; 87040; 87641; 88305; 88342; 94640; 99285; A9270-GY; C9113; J0330; J2370; J2543; J3370

== ENCOUNTER 2017-02-12 17:11 | Inpatient (IN) | payer MEDICARE, OTHER ==
--- NOTE | ~2017-02-12 | HP ---
History And Physical [place] [id number] [facility] [place]. [address] NAME: STEFANIA COLES : 42 STATUS : ADM IN [facility]#: [id number] AGE: 76 ADM/REG DATE : 02/12/17 MR#: [id number] REPORT SERV DATE: 02/13/17 DICTATED BY: ZAIDA FLAHERTY DATE: 02/13/17 REPORT STATUS : Draft TRANSCRIBED BY: SHAMIKA DATE: 02/13/17 DATE OF ADMISSION: 02/12/2017 CHIEF COMPLAINT: A 76-year-old female debilitated by strokes and now dependent for activities of daily living and presenting with melena. HISTORY OF PRESENT ILLNESS: The patient's history was obtained through an interview with the patient and coupled with review of [facility] medical records. The patient's provides most of the history and he has a journal of the events that have affected the patient over the last week or so. On 02/05/2017, the patient first began to develop black stools and these stools have persisted over the last seven days. Because of an upset stomach and belching, the patient's had been giving patient Pepto-Bismol up to seven doses a day it turns out, but he has been given this medication for about five days now. About seven days ago when the melena began, the patient also developed "blotchy" discoloration of the skin. Because of this, the held the Carafate and Prevacid for several days as these were new medications and he was worried that it was an adverse drug reaction. But when the skin changes improved, he decided to restart these medications without recurrence of the skin changes. There has been no nausea or vomiting. There has been no black matter in the PEG tube. No shortness of breath. No chest pain. No fevers or chills. No confusion compared to baseline. The patient has had abdominal pain "on and off" over the last week or so. She is unable to give a precise location, quality, or severity of it though. REVIEW OF SYSTEMS: Otherwise, a 14-point review of systems was obtained and was negative. PAST MEDICAL HISTORY: 1. Stroke x3, now debilitated. 2. COPD. 3. Hypertension. 4. Elevated cholesterol. 5. Peptic ulcer disease, seen by Dr. Edmondson. 6. Fatty liver disease. 7. Rheumatoid arthritis, on methotrexate and Plaquenil. PAST SURGICAL HISTORY: 1. PEG tube placement. 2. Tracheostomy, although patient still has a stoma. The trach has been removed. History And Physical [place] [id number] [place]. [address] NAME: STEFANIA COLES : 42 STATUS : ADM IN [facility]#: [id number] AGE: 76 ADM/REG DATE : 02/12/17 MR#: [id number] REPORT SERV DATE: 02/13/17 DICTATED BY: ZAIDA FLAHERTY DATE: 02/13/17 REPORT STATUS : Draft TRANSCRIBED BY: SHAMIKA DATE: 02/13/17 ALLERGIES: ASPIRIN. SOCIAL HISTORY: Quit smoking about three years ago. Also used to be a heavy drinker of liquor but quit about nine years ago. She is . Had one of her daughters pass away. The patient and her live in [place], [place]. FAMILY HISTORY: One of her daughters of an accidental drug overdose. CURRENT MEDICATIONS: Include DuoNeb nebulizers, vitamin C, folic acid, Plaquenil 200 mg every morning, methotrexate weekly, Lopressor 50 mg in the morning, potassium 20 mEq in the morning, prednisone 2.5 mg in the morning, sucralfate 1 g every six hours, and Prevacid dose daily. PHYSICAL EXAMINATION: VITAL SIGNS: Temperature 98.5, pulse 84, blood pressure 109/53, respiratory rate 18, and O2 saturation 95% on room air. GENERAL: Chronically ill and debilitated female, but in no evidence of distress. HEENT: Pupils equal, round, and reactive to light. No conjunctival pallor. No scleral icterus. Nares are patent. Oropharynx is clear of obstruction. Mildly dry mucous membranes. No intraoral lesions. NECK: Trachea midline. No thyromegaly. There is some chronic appearing purulent matter around her stoma from her previous tracheostomy site but no overt erythema, tenderness, swelling, or other signs of infection. RESPIRATORY: Clear to auscultation at bases. No wheezes, rales, or rhonchi. Normal respiratory effort. CARDIOVASCULAR: Regular rate and rhythm. No murmurs, rubs, or gallops. No extremity edema is appreciated. LYMPH: No cervical lymphadenopathy. No supraclavicular lymphadenopathy. ABDOMEN: Completely soft, nontender, nondistended. Normal bowel sounds auscultated throughout. No hepatosplenomegaly. Stable and uncomplicated appearing PEG tube. DERMATOLOGICAL: Warm and dry extremities. No pallor. No cyanosis. PSYCHIATRIC: Normal affect. She is alert. She has difficulty with orientation to details or recent history but is oriented to location, but is poorly oriented to details of time though. LABORATORY DATA: White blood cell count 8.7, hemoglobin 8.6, hematocrit 26.9, and platelets 415. Sodium 139, potassium 4.3, chloride 102, bicarb 29, BUN 45, creatinine 0.74, glucose 92. INR 1.2. Liver enzymes within normal limits. STUDIES: EKG by my own evaluation shows sinus rhythm, no major abnormalities. ASSESSMENT AND PLAN: 1. Recurrent upper GI bleed. Place on IV proton pump inhibitor drip. Consult Dr. Edmondson, historic preservationist. 2. Blood-loss anemia. Follow hemoglobin and hematocrit. 3. Late effects of stroke, debilitated. History And Physical [address] [address] NAME: STEFANIA COLES : 42 STATUS : ADM IN [facility]#: [id number] AGE: 76 ADM/REG DATE : 02/12/17 MR#: [id number] REPORT SERV DATE: 02/13/17 DICTATED BY: ZAIDA FLAHERTY DATE: 02/13/17 REPORT STATUS : Draft TRANSCRIBED BY: SHAMIKA DATE: 02/13/17 4. Chronic obstructive pulmonary disease. DuoNeb nebulizers. [facility] Zaida Flaherty M.D. / [id number] CC: MD Aram Shah M.D. Munford Yates III, M.D.
--- NOTE | ~2017-02-12 | CN ---
Consultation Report [facility] [address] [facility] [address] NAME: STEFANIA RIVER : 42 STATUS : ADM IN [facility]#: [id number] AGE: 76 ADM/REG DATE : 02/12/17 MR#: [id number] REPORT SERV DATE: 02/13/17 DICTATED BY: CHAVA HANNAH DATE: 02/13/17 REPORT STATUS : Draft TRANSCRIBED BY: MODL DATE: 02/13/17 GI CONSULTATION DATE OF CONSULTATION: 02/13/2017 REASON FOR CONSULTATION: Evaluation and management of questionable recurrent GI bleeding. HISTORY OF PRESENT ILLNESS: It should be noted that the patient's history of present illness has been gathered from data collection from the chart as well as discussing with the nurse as the patient is unable to supply any meaningful information to me. Ms. River is a 76- year-old chronically debilitated female, who presented to [facility] on 02/12 with a history of what has been described as black stools for the past seven days, starting 02/05/2017. She had upset stomach and belching. The patient's gave her Pepto- Bismol seven doses a day x5 days, thus because of the continuance of black stools, he brought her in. It was stated that she had some abdominal pain on and off for the last week. However, upon my assessment of her, there was none elicited on exam. She has a history of being in the hospital, 01/24 through 01/27 for upper GI bleed. She has a history of a massive stroke three years ago with respiratory failure, status post trach and removal. She did have a PEG tube placed at that time. She has recently been at [facility] for several complaints of vomiting up blood. She did see GI there and had endoscopy, showing a duodenal ulcer that had been cauterized per reports. She presented on 01/24, Dr. Edmondson saw her in consultation and performed an upper endoscopy on her on 01/24/2017. Exam showed LA grade D reflux esophagitis, involving at least 75% of the esophageal circumference. No bleeding was found though. She had a medium-sized hiatal hernia. Diffuse mildly erythematous mucosa without bleeding was found in the gastric antrum, biopsies were taken. She had one nonbleeding cratered duodenal ulcer with pigmented material in the second part of the duodenum. The lesion was 20 mm in largest dimension with biopsies being taken. The ulcer showed acutely inflamed granulation tissue. She also had fundic gastric mucosa with mild chronic superficial gastritis, H pylori was negative. She was subsequently discharged with a stable hemoglobin. She was discharged with a hemoglobin of 8.3. When she was admitted on 02/12, she had a hemoglobin of 8.6, presently it is 7.8. She has received IV fluids. She has been on a Protonix drip. I have flushed her PEG tube and aspirated the contents, which revealed light yellow liquid. I was planning to perform a rectal exam. However, upon removing her brief, she had had a liquid bowel movement that appeared to be a very, kind of dark slimy green color. Her abdomen is flat. I could not elicit any pain on exam. I have discussed the case with Dr. Aguilera. At present, we are going to try to manage her medically without endoscopy. We will monitor her H and H every six hours. If she continues to drop and/or has acute large-volume GI bleeding, we will take her to the endoscopy suite for further evaluation. PAST MEDICAL HISTORY: Positive for upper GI bleed secondary to duodenal ulceration, debility secondary to CVA suffered three years ago, COPD, hypertension, elevated cholesterol, fatty liver disease and rheumatoid arthritis, on a regimen of methotrexate and Plaquenil. Consultation Report [address] [place]. [address] NAME: STEFANIA RIVER : 42 STATUS : ADM IN [facility]#: [id number] AGE: 76 ADM/REG DATE : 02/12/17 MR#: [id number] REPORT SERV DATE: 02/13/17 DICTATED BY: CHAVA HANNAH DATE: 02/13/17 REPORT STATUS : Draft TRANSCRIBED BY: SHAMIKA DATE: 02/13/17 PAST SURGICAL HISTORY: PEG tube placement and tracheostomy, since been removed. SOCIAL HISTORY: Past tobacco. Past alcohol. She is and still lives independently with her . FAMILY HISTORY: Noncontributory from a GI standpoint. ALLERGIES: LISTED TO ASPIRIN. HOME MEDICATIONS: DuoNeb, vitamin C, folic acid, Plaquenil, methotrexate, Lopressor, potassium, prednisone, Carafate, and Prevacid. REVIEW OF SYSTEMS: Limited secondary to the patient's mental status. LABORATORY DATA: Sodium is 141, potassium 3.6, BUN is 35, creatinine 0.69. White count 8, hemoglobin 7.8, hematocrit 24.8, platelet count 441. INR of 1.2. LFTs were normal. PHYSICAL EXAMINATION: VITAL SIGNS: Temperature 97.5, pulse 103, respirations 18, blood pressure 117/55. NEURO: The patient opens her eyes to much prompting. She is chronically ill appearing and debilitated. GENERAL: She is in no obvious acute distress. She awakens to name with much prompting. NECK: She has an old trach site noted without any redness or drainage being assessed. LUNGS: Coarse with normal respiratory effort exhibited. CARDIOVASCULAR SYSTEM: Regular rhythm, but tachycardic. ABDOMEN: Soft, nondistended, nontender with active bowel sounds. PEG tube, no drainage or redness around the site. SKIN: Warm, dry, and intact. She has notable ecchymosis in some spots. RECTAL: Deferred. Upon turning the patient, she had dark liquid green bowel movement in her brief. ASSESSMENT: 1. Questionable recurrent upper GI bleed. The patient has a history of duodenal ulcer with bleeding, treated at [facility], as well as reflux esophagitis. 2. "Dark" stools, but has been on a regimen of Pepto-Bismol multiple times a day for the past five days. 3. Anemia, acute on chronic. Baseline hemoglobin at present. 4. Cerebrovascular accident with debilitation. 5. History of chronic obstructive pulmonary disease. PLAN: 1. Continue Protonix drip. 2. Check stool studies. 3. No plans at present for repeat scope unless acute drop in hemoglobin or large-volume Consultation Report [place] [address] [place]. [address] NAME: STEFANIA RIVER : 42 STATUS : ADM IN PAT#: [id number] AGE: 76 ADM/REG DATE : 02/12/17 MR#: [id number] REPORT SERV DATE: 02/13/17 DICTATED BY: CHAVA HANNAH DATE: 02/13/17 REPORT STATUS : Draft TRANSCRIBED BY: SHAMIKA DATE: 02/13/17 bleeding. 4. Monitor H and H, transfuse if needed. We will follow. LUC/SHAMIKA Chava JEFFY Torres / [id number] CC: MD Aram Shah M.D.
--- NOTE | ~2017-02-12 | DS ---
Discharge Summary [place] [id number] [place]. [address] NAME: STEFANIA COLES : 42 STATUS : DIS IN PAT#: [id number] AGE: 76 ADM/REG DATE : 02/12/17 MR#: [id number] REPORT SERV DATE: 02/18/17 DICTATED BY: MADHU WALTERS DATE: 02/17/17 REPORT STATUS : Draft TRANSCRIBED BY: MODL DATE: 02/17/17 ADMISSION DATE: 02/12/2017 DISCHARGE DATE: 02/17/2017 The patient is a 76-year-old female with a history of COPD and debilitating stroke, who was brought to the emergency room by her with a complaint of melena. For further details please refer to H and P dictated by Dr. Ernst Bach on 02/13/2017. HOSPITAL COURSE: Upon presentation to the emergency room, fecal occult blood test obtained in the emergency room was positive. Also the patient was noted to have black stools. The patient was diagnosed with upper GI, admitted under Hospitalist Service for further details. Given her symptoms GI was consulted. Please refer to GI consultation note dictated on 02/12/2017. From GI perspective given that her hemoglobin was stable there was not any active sign of bleed. From GI standpoint there was no utility for an upper endoscopy to be performed at this admission. Stool was tested for C. diff Cryptosporidium, Giardia, Shiga toxin. The C. diff came back positive. The patient was placed on contact isolation and was started on p.o. vanc. Her status post initiation of p.o. vanc her diarrhea has significantly improved. Given that there is no plan for workup of presumable GI bleed and given that even though the patient had GI bleed it appears to have resolved given the stability of her hemoglobin. Given no further workup from GI standpoint the patient will be discharged home today. DISCHARGE DIAGNOSES: 1. Clostridium difficile colitis. 2. Normocytic anemia. 3. Cerebrovascular accident with debilitation. 4. Chronic obstructive pulmonary disease. 5. Rheumatoid arthritis. DISCHARGE MEDICATIONS: The patient's home medications were continued. Discharge medications include: 1. Folic acid 1 mg p.o. every evening. 2. Plaquenil 200 mg p.o. every morning. 3. Methotrexate 20 mg q.7 days. 4. Lopressor 50 mg every morning. 5. Sucralfate 1 g via PEG q.6 hours. 6. Prednisone 2.5 mg via PEG every morning. 7. Potassium chloride 10 mg via PEG every morning. 8. Ascorbic acid 500 mg via PEG every morning. 9. DuoNeb one inhalation daily p.r.n. 10.Vancomycin 125 mg p.o. q.6 hours for 12 days. DISPOSITION: The patient will be discharged home. ACTIVITY: As tolerated. Discharge Summary [address] [address] NAME: STEFANIA COLES : 42 STATUS : DIS IN PAT#: [id number] AGE: 76 ADM/REG DATE : 02/12/17 MR#: [id number] REPORT SERV DATE: 02/18/17 DICTATED BY: MADHU WALTERS DATE: 02/17/17 REPORT STATUS : Draft TRANSCRIBED BY: SHAMIKA DATE: 02/17/17 DIET: Tube feeds. Greater than 30 minutes were spent planning discharge, medication reconciliation dictated, dictation of note, discussion of care with nursing staff. GT/SHAMIKA Madhu Walters MD / [id number] CC: MD Aram Shah M.D.
[~2017-02-12 17:11] MED LIST: BACDS PEG; CARASPUDL PO; DUONEB INH; LOP50 PO; P5 PO; PLAQ200B PO; PREV30 PO; VITC500 PO; ZOCOR20 PO
[2017-02-12 17:39] LABS: BASOPHILS 0.2 %; BASOPHILS ABSOLUTE 0.02 10/3/uL (0.0-0.16); EOSINOPHILS 2.5 %; EOSINOPHILS ABSOLUTE 0.22 10/3/uL (0.0-0.53); ER CBC TAT 0 Hrs 05 Mins; HEMATOCRIT 26.9 % (36.0-48.0); HEMOGLOBIN 8.6 g/dL (12.0-16.0); IMMATURE GRANULOCYTES 0.1 %; IMMATURE GRANULOCYTES ABSOLUTE 0.01 10/3/uL (0.0-0.11); LYMPHOCYTES 16.5 %; LYMPHOCYTES ABSOLUTE 1.43 10/3/uL (0.67-4.30); MEAN CORPUSCULAR HEMOGLOB 27.8 pg (26.0-34.0); MEAN CORPUSCULAR VOLUME 87.1 fL (80-100); MEAN PLATELET VOLUME 7.8 fL (9.2-13.0); MONOCYTES 7.7 %; MONOCYTES ABSOLUTE 0.67 10/3/uL (0.21-1.20); NEUTROPHILS ABSOLUTE 6.32 10/3/uL (2.02-8.40); PLATELET COUNT 415 10/3/uL (150-400); RBC DISTRIBUTION WIDTH 14.8 % (12.0-16.0); RED CELL COUNT 3.09 10/6/uL (4.0-5.6); WHITE BLOOD CELLS 8.7 10/3/uL (4.5-10.5)
[2017-02-12 17:40] LABS: MANUAL DIFF NO %
[2017-02-12 17:49] LABS: INTERNATIONAL NORMAL RATI 1.2 UNITS (-); PARTIAL THROMBO TIME 32.2 SEC (22.5-37.2); PROTIME (NOT ORD) 14.9 SEC (12.0-14.5)
[2017-02-12 17:53] LABS: A/G RATIO 0.5 (0.7-1.9); ALBUMIN 2.1 G/DL (3.5-5.0); ALKALINE PHOSPHATASE 100 U/L (45-117); BUN (BLOOD UREA NITROGEN) 45 MG/DL (6-23); CALCIUM, SERUM 8.4 MG/DL (8.5-10.4); CHLORIDE, SERUM 102 MMOL/L (96-112); CO2 (CARBON DIOXIDE) 29 MMOL/L (24-34); CREATININE 0.74 MG/DL (0.55-1.02); GFR AFRICAN AMERICAN 92 ML/MIN (>=60); GFR NON AFRICAN AMERICAN 80 ML/MIN (>=60); GLOBULIN 4.6 G/DL (2.5-4.1); GLUCOSE, SERUM 92 MG/DL (60-99); POTASSIUM, SERUM 4.3 MMOL/L (3.5-5.3); SGOT(AST) 17 U/L (5-40); SGPT(ALT) 23 U/L (5-65); SODIUM, SERUM 139 MMOL/L (135-148); TOTAL BILIRUBIN 0.3 MG/DL (0-1.2); TOTAL PROTEIN 6.7 G/DL (6.0-8.5)
[2017-02-12] MEDS ORDERED: MTX2.5 PEG (22:00)
[2017-02-12] MEDS ORDERED: CARASPUDL PEG (22:12)
[2017-02-12] MEDS ORDERED: DUONEB INH (22:15)
[2017-02-12] MEDS ORDERED: PREVACID PEG (22:19)
[2017-02-13 00:36] LABS: HEMATOCRIT 25.7 % (36.0-48.0); HEMOGLOBIN 8.2 g/dL (12.0-16.0)
[2017-02-13 06:01] LABS: INTERNATIONAL NORMAL RATI 1.2 UNITS (-); PROTIME (NOT ORD) 15.4 SEC (12.0-14.5)
[2017-02-13 06:02] LABS: PARTIAL THROMBO TIME 32.6 SEC (22.5-37.2)
[2017-02-13 06:19] LABS: BASOPHILS 0.6 %; BASOPHILS ABSOLUTE 0.05 10/3/uL (0.0-0.16); EOSINOPHILS 4.3 %; EOSINOPHILS ABSOLUTE 0.34 10/3/uL (0.0-0.53); HEMATOCRIT 24.8 % (36.0-48.0); HEMOGLOBIN 7.8 g/dL (12.0-16.0); IMMATURE GRANULOCYTES 0.4 %; IMMATURE GRANULOCYTES ABSOLUTE 0.03 10/3/uL (0.0-0.11); LYMPHOCYTES 16.2 %; LYMPHOCYTES ABSOLUTE 1.29 10/3/uL (0.67-4.30); MEAN CORPUS HGB CONC 31.5 g/dL (32.0-36.0); MEAN CORPUSCULAR HEMOGLOB 27.6 pg (26.0-34.0); MEAN CORPUSCULAR VOLUME 87.6 fL (80-100); MONOCYTES 10.1 %; NEUTROPHILS 68.4 %; NEUTROPHILS ABSOLUTE 5.44 10/3/uL (2.02-8.40); PLATELET COUNT 441 10/3/uL (150-400); RBC DISTRIBUTION WIDTH 14.8 % (12.0-16.0); RED CELL COUNT 2.83 10/6/uL (4.0-5.6)
[2017-02-13 06:20] LABS: MANUAL DIFF NO %
[2017-02-13 06:26] LABS: A/G RATIO 0.5 (0.7-1.9); ALKALINE PHOSPHATASE 90 U/L (45-117); CALCIUM, SERUM 8.4 MG/DL (8.5-10.4); CHLORIDE, SERUM 105 MMOL/L (96-112); CREATININE 0.69 MG/DL (0.55-1.02); GFR AFRICAN AMERICAN 99 ML/MIN (>=60); GFR NON AFRICAN AMERICAN 86 ML/MIN (>=60); GLOBULIN 4.2 G/DL (2.5-4.1); POTASSIUM, SERUM 3.6 MMOL/L (3.5-5.3); SGOT(AST) 17 U/L (5-40); SGPT(ALT) 16 U/L (5-65); SODIUM, SERUM 141 MMOL/L (135-148); TOTAL BILIRUBIN 0.4 MG/DL (0-1.2); TOTAL PROTEIN 6.2 G/DL (6.0-8.5); TROPONIN I <0.02 NG/ML (<0.05)
[2017-02-13 06:27] LABS: BUN (BLOOD UREA NITROGEN) 35 MG/DL (6-23); CO2 (CARBON DIOXIDE) 24 MMOL/L (24-34); GLUCOSE, SERUM 70 MG/DL (60-99)
[2017-02-13 11:48] LABS: HEMATOCRIT 25.3 % (36.0-48.0); HEMOGLOBIN 7.9 g/dL (12.0-16.0)
[2017-02-13 16:25] LABS: HEMATOCRIT 24.1 % (36.0-48.0); HEMOGLOBIN 7.6 g/dL (12.0-16.0)
[2017-02-13 23:05] LABS: HEMATOCRIT 23.5 % (36.0-48.0); HEMOGLOBIN 7.4 g/dL (12.0-16.0)
[2017-02-14 05:16] LABS: HEMATOCRIT 24.1 % (36.0-48.0); HEMOGLOBIN 7.6 g/dL (12.0-16.0); MEAN CORPUS HGB CONC 31.5 g/dL (32.0-36.0); MEAN CORPUSCULAR HEMOGLOB 27.7 pg (26.0-34.0); MEAN PLATELET VOLUME 7.9 fL (9.2-13.0); PLATELET COUNT 405 10/3/uL (150-400); RBC DISTRIBUTION WIDTH 15.1 % (12.0-16.0); RED CELL COUNT 2.74 10/6/uL (4.0-5.6); WHITE BLOOD CELLS 8.6 10/3/uL (4.5-10.5)
[2017-02-14 05:17] LABS: MANUAL DIFF YES %
[2017-02-14 05:20] LABS: INTERNATIONAL NORMAL RATI 1.3 UNITS (-); PROTIME (NOT ORD) 16.2 SEC (12.0-14.5)
[2017-02-14 05:44] LABS: CALCIUM, SERUM 8.1 MG/DL (8.5-10.4); CHLORIDE, SERUM 110 MMOL/L (96-112); CO2 (CARBON DIOXIDE) 23 MMOL/L (24-34); CREATININE 0.62 MG/DL (0.55-1.02); GFR AFRICAN AMERICAN 103 ML/MIN (>=60); GFR NON AFRICAN AMERICAN 89 ML/MIN (>=60); POTASSIUM, SERUM 3.9 MMOL/L (3.5-5.3); SODIUM, SERUM 144 MMOL/L (135-148)
[2017-02-14 05:48] LABS: BUN (BLOOD UREA NITROGEN) 25 MG/DL (6-23); GLUCOSE, SERUM 40 MG/DL (60-99)
[2017-02-14 06:36] LABS: BAND NEUTROPHILS 12 %; BASOPHILS 2 %; BASOPHILS ABSOLUTE (CALC) 0.17 10/3/uL (0.0-0.16); EOSINOPHILS 2 %; EOSINOPHILS ABSOLUTE (CALC) 0.17 10/3/uL (0.0-0.53); IMMATURE GRANS ABSOLUTE (CALC) 0.17 10/3/uL (0.0-0.11); LYMPHOCYTES 14 %; METAMYELOCYTES 2 %; MONOCYTES 3 %; MONOCYTES ABSOLUTE (CALC) 0.26 10/3/uL (0.21-1.20); NEUTROPHILS ABSOLUTE (CALC) 6.62 10/3/uL (2.02-8.40); PLATELET ESTIMATE ADQ (ADEQUATE); SEGMENTED NEUTROPHIL (0) 65 %; TOTAL NUCLEATED CELLS 100
[2017-02-14 06:37] LABS: POLYCHROMASIA 1+ (2-5/OIF) (0-1/OIF); TOXIC GRANULATION 1+
[2017-02-14 11:01] LABS: HEMATOCRIT 25.6 % (36.0-48.0)
[2017-02-14 17:22] LABS: HEMATOCRIT 23.3 % (36.0-48.0); HEMOGLOBIN 7.5 g/dL (12.0-16.0)
[2017-02-14 23:35] LABS: HEMOGLOBIN 7.8 g/dL (12.0-16.0)
[2017-02-15 07:39] LABS: BASOPHILS 0.2 %; BASOPHILS ABSOLUTE 0.02 10/3/uL (0.0-0.16); EOSINOPHILS 1.7 %; EOSINOPHILS ABSOLUTE 0.19 10/3/uL (0.0-0.53); HEMATOCRIT 23.4 % (36.0-48.0); HEMOGLOBIN 7.4 g/dL (12.0-16.0); IMMATURE GRANULOCYTES 0.3 %; IMMATURE GRANULOCYTES ABSOLUTE 0.03 10/3/uL (0.0-0.11); LYMPHOCYTES 8.1 %; LYMPHOCYTES ABSOLUTE 0.92 10/3/uL (0.67-4.30); MEAN CORPUS HGB CONC 31.6 g/dL (32.0-36.0); MEAN CORPUSCULAR HEMOGLOB 27.3 pg (26.0-34.0); MEAN CORPUSCULAR VOLUME 86.3 fL (80-100); MEAN PLATELET VOLUME 7.7 fL (9.2-13.0); MONOCYTES 10.4 %; MONOCYTES ABSOLUTE 1.19 10/3/uL (0.21-1.20); NEUTROPHILS 79.3 %; NEUTROPHILS ABSOLUTE 9.06 10/3/uL (2.02-8.40); PLATELET COUNT 385 10/3/uL (150-400); RBC DISTRIBUTION WIDTH 15.2 % (12.0-16.0); RED CELL COUNT 2.71 10/6/uL (4.0-5.6); WHITE BLOOD CELLS 11.4 10/3/uL (4.5-10.5)
[2017-02-15 07:42] LABS: MANUAL DIFF NO %
[2017-02-15 07:54] LABS: A/G RATIO 0.5 (0.7-1.9); ALBUMIN 1.9 G/DL (3.5-5.0); ALKALINE PHOSPHATASE 85 U/L (45-117); CALCIUM, SERUM 7.8 MG/DL (8.5-10.4); CHLORIDE, SERUM 107 MMOL/L (96-112); CO2 (CARBON DIOXIDE) 24 MMOL/L (24-34); CREATININE 0.75 MG/DL (0.55-1.02); GFR AFRICAN AMERICAN 91 ML/MIN (>=60); GFR NON AFRICAN AMERICAN 79 ML/MIN (>=60); GLOBULIN 3.9 G/DL (2.5-4.1); POTASSIUM, SERUM 3.7 MMOL/L (3.5-5.3); SGOT(AST) 12 U/L (5-40); SGPT(ALT) 13 U/L (5-65); SODIUM, SERUM 143 MMOL/L (135-148); TOTAL BILIRUBIN 0.6 MG/DL (0-1.2); TOTAL PROTEIN 5.8 G/DL (6.0-8.5)
[2017-02-15 07:57] LABS: BUN (BLOOD UREA NITROGEN) 17 MG/DL (6-23); GLUCOSE, SERUM 112 MG/DL (60-99)
[2017-02-15 16:48] LABS: HEMATOCRIT 23.3 % (36.0-48.0); HEMOGLOBIN 7.4 g/dL (12.0-16.0)
[2017-02-16 05:40] LABS: HEMATOCRIT 23.5 % (36.0-48.0); HEMOGLOBIN 7.2 g/dL (12.0-16.0); MEAN CORPUS HGB CONC 30.6 g/dL (32.0-36.0); MEAN CORPUSCULAR HEMOGLOB 27.2 pg (26.0-34.0); MEAN CORPUSCULAR VOLUME 88.7 fL (80-100); MEAN PLATELET VOLUME 8.4 fL (9.2-13.0); PLATELET COUNT 324 10/3/uL (150-400); RBC DISTRIBUTION WIDTH 15.8 % (12.0-16.0); RED CELL COUNT 2.65 10/6/uL (4.0-5.6); WHITE BLOOD CELLS 8.7 10/3/uL (4.5-10.5)
[2017-02-16 05:42] LABS: MANUAL DIFF YES %
[2017-02-16 05:59] LABS: A/G RATIO 0.4 (0.7-1.9); ALBUMIN 1.8 G/DL (3.5-5.0); ALKALINE PHOSPHATASE 83 U/L (45-117); BUN (BLOOD UREA NITROGEN) 19 MG/DL (6-23); CALCIUM, SERUM 7.9 MG/DL (8.5-10.4); CHLORIDE, SERUM 108 MMOL/L (96-112); CO2 (CARBON DIOXIDE) 21 MMOL/L (24-34); CREATININE 0.72 MG/DL (0.55-1.02); GFR AFRICAN AMERICAN 96 ML/MIN (>=60); GFR NON AFRICAN AMERICAN 83 ML/MIN (>=60); GLOBULIN 4.1 G/DL (2.5-4.1); GLUCOSE, SERUM 107 MG/DL (60-99); SGPT(ALT) 15 U/L (5-65); SODIUM, SERUM 139 MMOL/L (135-148); TOTAL BILIRUBIN 0.4 MG/DL (0-1.2); TOTAL PROTEIN 5.9 G/DL (6.0-8.5)
[2017-02-16 06:04] LABS: SGOT(AST) 33 U/L (5-40)
[2017-02-16 06:06] LABS: POTASSIUM, SERUM 4.6 MMOL/L (3.5-5.3)
[2017-02-16 06:12] LABS: ANISOCYTOSIS 1+ (5-10/OIF) (0-5/OIF); BAND NEUTROPHILS 7 %; EOSINOPHILS 2 %; EOSINOPHILS ABSOLUTE (CALC) 0.17 10/3/uL (0.0-0.53); HYPOCHROMIA 1+ (3-10/OIF) (0-2/OIF); LYMPHOCYTES 20 %; LYMPHOCYTES ABSOLUTE (CALC) 1.74 10/3/uL (0.67-4.30); MONOCYTES 6 %; MONOCYTES ABSOLUTE (CALC) 0.52 10/3/uL (0.21-1.20); NEUTROPHILS ABSOLUTE (CALC) 6.26 10/3/uL (2.02-8.40); PLATELET ESTIMATE ADQ (ADEQUATE); POLYCHROMASIA 1+ (2-5/OIF) (0-1/OIF); SCHISTOCYTES OCC (0-2/OIF); SEGMENTED NEUTROPHIL (0) 65 %; TOTAL NUCLEATED CELLS 100
[2017-02-17 06:47] LABS: BUN (BLOOD UREA NITROGEN) 20 MG/DL (6-23); CALCIUM, SERUM 8.1 MG/DL (8.5-10.4); CHLORIDE, SERUM 106 MMOL/L (96-112); CO2 (CARBON DIOXIDE) 25 MMOL/L (24-34); CREATININE 0.71 MG/DL (0.55-1.02); GFR AFRICAN AMERICAN 97 ML/MIN (>=60); GFR NON AFRICAN AMERICAN 84 ML/MIN (>=60); GLUCOSE, SERUM 97 MG/DL (60-99); POTASSIUM, SERUM 4.5 MMOL/L (3.5-5.3); PREALBUMIN 14.8 MG/DL (17.0-43.0); SODIUM, SERUM 140 MMOL/L (135-148)
[2017-02-17 07:51] LABS: HEMATOCRIT 27.7 % (36.0-48.0)
[2017-02-17] MEDS ORDERED: VANCOCIN HCL125 MG PEG (16:17)
[2017-05-05] MEDS ORDERED: ACET500CAP PEG (11:38)
[2017-05-05] MEDS ORDERED: KLOR-CON20 MEQ PEG (11:39)
[2017-05-05] MEDS ORDERED: PLAQ200B PEG (11:40)
[2017-05-05] MEDS ORDERED: PREDNISONE2.5 MG PEG (11:40)
[2017-05-05] MEDS ORDERED: LOP50 PEG (11:41)
[2017-05-05] MEDS ORDERED: FOLIC PEG (11:41)
[2017-05-05] MEDS ORDERED: VITC500 PEG (11:41)
[2017-05-05] MEDS ORDERED: SUCR PO (11:41)
[2017-05-05] MEDS ORDERED: DUONEB INH (11:42)
[2017-05-05] MEDS ORDERED: ZOCOR20 PEG (11:43)
[2017-05-05] MEDS ORDERED: FLORASTOR250 MG PO (11:44)
== END 2017-02-17 18:21 | disposition home or self-care (01) | DRG 371 ==
LOC: ER 17:11 → 7NO 21:49
PROVIDERS: Emergency Medicine; Hospitalist; Nurse Practitioner Family
PROC: 30233N1 Transfusion of Nonautologous Red Blood Cells into Peripheral Vein, Percutaneous Approach (ICD-10-PCS; principal; 2017-02-16)
DX: A04.7 Enterocolitis due to Clostridium difficile (principal); L89.014 Pressure ulcer of right elbow, stage 4; J44.9 Chronic obstructive pulmonary disease, unspecified; D62 Acute posthemorrhagic anemia; I69.398 Other sequelae of cerebral infarction; M06.9 Rheumatoid arthritis, unspecified; Z87.891 Personal history of nicotine dependence
CPT/HCPCS: 36415; 71010; 80048; 80053; 82962; 83735; 84100; 84134; 84443; 84484; 85014; 85018; 85025; 85610; 85730; 86850; 86900; 86901; 86902; 86920; 86922; 87045; 87046; 87046-59; 87328; 87329; 87493; 87493-59; 87899; 87899-59; 89055; 93005; 94640; 99285; A9270-GY; C9113; J8610; P9016

== ENCOUNTER 2017-02-25 11:58 | Inpatient (IN) | payer MEDICARE, OTHER ==
--- NOTE | ~2017-02-25 | CN ---
Consultation Report [facility] [address] [place]. [address] NAME: STEFANIA COLES : 42 STATUS : ADM IN PAT#: [id number] AGE: 76 ADM/REG DATE : 02/25/17 MR#: [id number] REPORT SERV DATE: 02/27/17 DICTATED BY: JACKIE BORREGO III DATE: 02/26/17 REPORT STATUS : Draft TRANSCRIBED BY: MODCodie DATE: 02/26/17 DATE OF CONSULTATION: 02/26/2017 HISTORY OF PRESENT ILLNESS: The patient is a 76-year-old debilitated white female, [facility], admitted with lower GI bleed and C difficile colitis. The patient is very debilitated secondary to multiple strokes in the past. She also has significant respiratory problems with COPD, recurrent pneumonia, and history of tracheostomy. She also has a history of significant arthritis, osteoporosis, and is bedridden with very limited mobility and very limited communicative skills. She has a history of GI bleeding and hiatal hernia. She has a PEG tube for nutrition and a history of significant cellulitis and chronic ulceration of the right elbow. Her stroke was in 2012, which was most debilitating. The patient at this time has a significant ulcer over the right olecranon region with 100% granulation bed with the ulceration being 7 x 4 cm and the depth is about 0.3. There was severe elbow contracture with hyperflexion. Attempts to approximate the skin edges for an ellipsing closure as recommended by Dr. Gonzalez Bunn have not had much success secondary to the contracture causing more pressure on the edge closure approximation. She also has had very poor nutrition status and has had re-injury secondary to transporting and hitting her arm. I have asked her to try to help gently straighten out the contracture, and Occupational Therapy has been seeing her at home. The patient's wound VAC has been helpful in controlling the wound and promoting granulation, but has now about to reach the maximum benefit. She is now admitted for GI bleed, which is being evaluated by the GI service and scoping planned for today. IMPRESSION: She has lower gastrointestinal bleed of unclear etiology, either hemorrhoidal or secondary to diverticular disease or neoplasm. She has a chronic ulceration in the right elbow complicated by severe contracture. I have recommended occupational therapy for recommendations for treatment of contracture and orthopedic physician's assistant professor to see the patient to see if we can get a brace that might help with the gentle relieving of the contracture. We will continue the wound VAC for now with local care and follow up in the wound healing clinic. The patient's , who is extremely attentive, has been unwilling to consider taking her to the operating room for closure in the past, but this may be an option. The patient has been seen by Dr. Jackie Bunn in the clinic with this physician and recommended continued attempts to close from the distal end and the proximal end, trying to pull the skin edges together which has had very limited success. The physical exam on her other than the right arm can be obtained from the history and physical. RB/SHAMIKA Jackie Borrego III, M.D. Consultation Report [address] [address] NAME: STEFANIA COLES : 42 STATUS : ADM IN PAT#: [id number] AGE: 76 ADM/REG DATE : 02/25/17 MR#: [id number] REPORT SERV DATE: 02/27/17 DICTATED BY: JACKIE BORREGO III DATE: 02/26/17 REPORT STATUS : Draft TRANSCRIBED BY: SHAMIKA DATE: 02/26/17 / [id number] CC: Jovanna Ferris M.D. Robert Mastey, M.D. [facility]
--- NOTE | ~2017-02-25 | HP ---
History And Physical [id number] [place]. [address] NAME: STEFANIA COLES : 42 STATUS : ADM IN [facility]#: [id number] AGE: 76 ADM/REG DATE : 02/25/17 MR#: [id number] REPORT SERV DATE: 02/25/17 DICTATED BY: VITOR ALSTON DATE: 02/25/17 REPORT STATUS : Draft TRANSCRIBED BY: SHAMIKA DATE: 02/25/17 DATE OF ADMISSION: 02/25/2017 CHIEF COMPLAINT: Bright red blood per rectum. HISTORY OF PRESENT ILLNESS: This is a 76-year-old female with a past medical history of CVA with chronic aphasia and dysphagia with PEG tube, recently discharged from the hospital by Dr. Mackenzie on 02/17/2017, for which at that time, the patient was admitted for an upper GI bleed and also found to be positive for Clostridium difficile. The patient's last EGD was on 01/27/[address] Edmondson, her primary GI physician with findings of esophagitis and one duodenal ulcer. However, during that hospital stay, repeat endoscopy was not warranted. According to the , the patient was discharged and her diarrhea resolved. She did miss approximately Twenty-four hour of her oral Vancocin after discharge due to pharmacy not having the oral Vancocin available. However, she denies any signs of abdominal discomfort while at home and no reports of vomiting, but according to the , the patient was treated with suppositories by her primary care physician for hemorrhoids several days ago, and then approximately after the suppository usage, the patient later developed some bright red blood per rectum for approximately three days. Also, the patient had a large bloody output per Dr. Owens, ER physician while in the ER, with full of blood in the bed with associated clots, and the hospitalist was called to admit the patient to the hospital. REVIEW OF SYSTEMS: Please refer to HPI. PAST MEDICAL HISTORY: Clostridium difficile, COPD, CVA, melena, anemia, rheumatoid arthritis, hypertension, hyperlipidemia, peptic ulcer disease, esophagitis, right elbow wound for approximately two months, currently being treated with wound VAC by Dr. Tylor Borrego. PAST SURGICAL HISTORY: PEG and trach. FAMILY HISTORY: Type 2 diabetes, hypertension. SOCIAL HISTORY: Quit tobacco abuse approximately three years ago. Quit alcohol approximately 9 years ago. No illicit drugs. 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 ALLERGIES: REPORTED ASPIRIN. HOME MEDICATIONS: 1. DuoNeb p.r.n. 2. Vitamin C. 3. Folic acid. 4. Plaquenil 200 mg daily. 5. Methotrexate 20 mg per PEG q.7 days. History And Physical [address] [address] NAME: STEFANIA COLES : 42 STATUS : ADM IN [facility]#: [id number] AGE: 76 ADM/REG DATE : 02/25/17 MR#: [id number] REPORT SERV DATE: 02/25/17 DICTATED BY: VITOR ALSTON DATE: 02/25/17 REPORT STATUS : Draft TRANSCRIBED BY: SHAMIKA DATE: 02/25/17 6. Lopressor 50 mg per PEG q.a.m. 7. Potassium chloride 20 mEq q.a.m. 8. Prednisone 2.5 mg p.o. daily. 9. Zocor 20 mg per PEG at bedtime. 10.Carafate 1 g per PEG q.6 hours. 11.Prevacid 10 mL per PEG daily. 12.Vancocin 125 mg per PEG q.6 hours for 12 days. PHYSICAL EXAMINATION: VITAL SIGNS: Temp of 97.7, blood pressure 118/56, with a pulse of 62, saturating 94%. GENERAL: The patient is alert, however, cannot assess orientation due to her chronic aphasia. The patient appears very fragile. Mild dry mucous membranes. HEENT: Pupils equal, round, and reactive to light. Extraocular muscles are intact. Anicteric sclerae. Dry mucous membranes CARDIOVASCULAR: S1, S2. Regular rate and rhythm. No murmurs, rubs, or gallops. No JVD. RESPIRATORY: With very mild rales in the left lower lobe but otherwise clear to auscultation. No wheezes. No crackles. No signs of tachypnea. ABDOMEN: Positive bowel sounds. Soft, nontender. No rebound. No fluid wave. No distention. Positive PEG tube. It appears clean. No signs of drainage. EXTREMITIES: Warm. No edema, with wound VAC to right elbow. NEURO: The patient is not moving extremities at this time. Not following commands. Hard to assess neurologic status, but currently at baseline according to . LABORATORY DATA: Sodium 135, potassium 4.8, chloride 99, bicarb 30, BUN 45, creatinine 0.85 with a glucose 106, total bilirubin of 0.4 with an alkaline phosphatase of 95. ALT of 21, AST of 32. White count of 9.2 with a hemoglobin of 8.9, platelet count 403. INR of 1.1. ASSESSMENT AND PLAN: 1. Bright red blood per rectum/gastrointestinal bleeding. 2. Recent clostridium difficile. 3. Chronic obstructive pulmonary disease. 4. History of CVA with chronic aphasia and dysphagia. 5. Chronic right elbow wound with wound VAC. 6. DNR/DNI. 7. The patient will be admitted to the Hospitalist Service. We will check serial labs to monitor hemoglobin and hematocrit, also we will re-consult the patient's GI physician, Dr. Edmondson, although suspect may be hemorrhoidal bleed. We will continue with the patient's Vancocin and also suspect the patient may require prolonged course including taper course considering the patient is on chronic steroid with chronic immunosuppressive medication, also, we will consult Dr. Borrego for continued wound care of the right elbow with wound VAC, also with discussion with the patient's who is clarified with Dr. Owens, ER physician as well as hospitalist as the patient code status is DNR/DNI. [facility]/MOD History And Physical [address] [address] NAME: STEFANIA COLES : 42 STATUS : ADM IN [facility]#: [id number] AGE: 76 ADM/REG DATE : 02/25/17 MR#: [id number] REPORT SERV DATE: 02/25/17 DICTATED BY: VITOR ALSTON DATE: 02/25/17 REPORT STATUS : Draft TRANSCRIBED BY: SHAMIKA DATE: 02/25/17 Vitor Alston M.D. / [id number] CC: Jovanna Ferris M.D. Munford Yates III, M.D.
--- NOTE | ~2017-02-25 | DS ---
Discharge Summary [address] [place]. [address] NAME: STEFANIA COLES : 42 STATUS : DIS IN PAT#: [id number] AGE: 76 ADM/REG DATE : 02/25/17 MR#: [id number] REPORT SERV DATE: 03/01/17 DICTATED BY: VITOR ALSTON DATE: 02/28/17 REPORT STATUS : Draft TRANSCRIBED BY: SHAMIKA DATE: 02/28/17 ADMISSION DATE: 02/25/2017 DISCHARGE DATE: 02/28/2017 DIAGNOSES: 1. Gastrointestinal bleed with bright red blood per rectum with suspected secondary to hemorrhoids. 2. Acute blood loss anemia, resolved. 3. Clostridium difficile. 4. Chronic right elbow pressure ulcer. 5. Chronic obstructive pulmonary disease. 6. History of cerebrovascular accident with chronic aphasia and dysphagia, tolerating tube feeds. CONSULTANTS: 1. marketing communications specialist, Dr. Borrego. 2. GI, Dr. Will Aguilera and Brian, nurse practitioner. FOLLOWUP: The patient should follow up with her primary care physician in one to two weeks. Recommend the patient to have a repeat stool C. diff after completion of antibiotics. Also, follow up with GI physician, Dr. Edmondson in two to three weeks. The patient should follow up with Dr. Borrego as already scheduled. DISCHARGE MEDICATIONS: 1. Ascorbic acid 500 mg per PEG daily. 2. Folic acid 1 mg per PEG daily. 3. Plaquenil 200 mg PEG daily. The patient is to hold methotrexate until completion of antibiotics and also after confirmation of resolution of C diff by PCP. 4. mg per PEG q.a.m. 5. Florastor one cap per PEG b.i.d. 6. Zocor 20 mg per PEG at bedtime. 7. Carafate 1 g q.6 hours. 8. Vancocin 125 per PEG q.6 hours for seven days, then 125 per PEG q.12 hours for seven days, then 125 per PEG daily for 14 days, then stop. 9. Anusol per rectum b.i.d. for six days per GI. 10.Potassium chloride 20 mEq per PEG every morning. 11.DuoNebs p.r.n. 12.Prevacid 10 mL per PEG q.a.m. 13.Prednisone 2.5 per PEG q.a.m. HOSPITAL COURSE: Please see H and P dictated. This is a 76 years old female with a past medical history of CVA with chronic aphasia and chronic dysphagia with PEG tube, on tube feeds. Also with a recent diagnosis of C. diff, currently on Vancocin, requiring several more days of Vancocin and presented with bright red blood per rectum and after receiving some suppositories, the patient was admitted to the Hospitalist Service with a GI consultation with Dr. Edmondson, however, seen by Dr. Will Aguilera, his colleague. The Discharge Summary [address] [place]. [address] NAME: STEFANIA COLES : 44 STATUS : DIS IN PAT#: [id number] AGE: 76 ADM/REG DATE : 02/25/17 MR#: [id number] REPORT SERV DATE: 03/01/17 DICTATED BY: VITOR ALSTON DATE: 02/28/17 REPORT STATUS : Draft TRANSCRIBED BY: SHAMIKA DATE: 02/28/17 patient was continued on Vancocin, and the patient did receive 2 units of packed red blood cells for acute blood loss anemia during her hospital stay. The patient was prepped by GI for a colonoscopy, but then Dr. Aguilera decided to not perform a colonoscopy due to the patient's infection with C. diff and recommended to follow up later as an outpatient. The patient's GI bleed resolved. It was suspected to be secondary to hemorrhoids, and the patient was given Anusol suppository by GI. Also, it was recommended for the patient to be on a slower taper off the Vancocin due to her immunocompromised state secondary to the steroid and methotrexate, and prescription was written for a prolonged course. Also, the patient was seen by Dr. Tylor Borrego for a wound VAC management and wound care management for her chronic right elbow pressure ulcer. The patient is to resume her home health wound care per Dr. Borrego. At the time of discharge, the patient's hemoglobin was 12.1 and hemodynamically stable for discharge with resolved bleeding. She is to follow up as an outpatient and all recommendations were discussed with the patient's at bedside. This discharge required greater than 30 minutes. SHREE/SHAMIKA Vitor Alston M.D. / [id number] CC: Jovanna Ferris JOSE Robert Barnett III, M.D. Jose Justiniano, M.D. Munford Yates III, M.D.
--- NOTE | ~2017-02-25 | CN ---
Consultation Report [facility] [address] [place]. [address] NAME: STEFANIA RIVER : 42 STATUS : ADM IN PAT#: [id number] AGE: 76 ADM/REG DATE : 02/25/17 MR#: [id number] REPORT SERV DATE: 02/26/17 DICTATED BY: CHAVA HANNAH DATE: 02/26/17 REPORT STATUS : Draft TRANSCRIBED BY: MODL DATE: 02/26/17 GI CONSULTATION DATE OF CONSULTATION: 02/26/2017 REASON FOR CONSULTATION: Evaluation and management of lower GI bleeding. HISTORY OF PRESENT ILLNESS: Ms River is a 76-year-old chronically debilitated patient, who we have been asked to see for lower GI bleeding. It should be noted that the history of present illness has been gathered from the chart, the nurse, as well as Ms River's . She has a history of being seen by Dr. Edmondson in consultation for upper GI bleed on 01/24/2017. He did an upper endoscopy on her showing LA grade D reflux esophagitis involving at least 75% of the esophageal circumference. No bleeding was found. She had a medium-sized hiatal hernia with diffuse mildly erythematous mucosa without bleeding in the gastric antrum with biopsies taken. One nonbleeding crater, duodenal ulcer with pigmented material in the second part of the duodenum. The lesion was 20 mm in largest dimension with biopsies being taken. The ulcer showed acutely inflamed granulation tissue. She also had a fundic gastric mucosa with mild chronic superficial gastritis. H. pylori was negative. She was subsequently discharged with a stable hemoglobin. She returned to [facility] on 02/13/2017 for questionable recurrence of GI bleeding. The patient's had been treating her with multiple doses of Pepto-Bismol secondary to diarrhea. Hemoglobin was low, but stable when she was admitted, we did assess her. It was decided that she would not undergo a repeat endoscopy. She was tested and found to be C. difficile positive, and has been being treated with vancomycin for that, but the states that over the weekend, he began to notice bright red blood per rectum. The patient was taken to her primary care physician, who treated her for hemorrhoids. He stated that he was given her the suppositories twice a day, but her bleeding actually worsened, thus prompting him to bring her back to the hospital for further evaluation. I have discussed with him, the patient by his knowledge never had a colonoscopy. He prefers that the patient undergo colonoscopy while she is here. I did discuss the risks, benefits, alternatives, and complications with him to include, but not limited to risk of bleeding, perforation, infection, reaction to medications, as well as cardiac and pulmonary side effects. He gives consent for her to have this procedure done. PAST MEDICAL HISTORY: Positive for upper GI bleed secondary to duodenal ulceration, debility secondary to CVAs x3 years ago, COPD, hypertension, elevated cholesterol, fatty liver disease, rheumatoid arthritis on a regimen of methotrexate and Plaquenil, C. difficile. SURGICAL HISTORY: PEG tube placement and tracheostomy. Trach has since been removed. SOCIAL HISTORY: Past tobacco. Past alcohol. She is and lives independently with her . FAMILY HISTORY: Noncontributory from a GI standpoint. Consultation Report [address] [place]. [address] NAME: STEFANIA RIVER : 44 STATUS : ADM IN [facility]#: [id number] AGE: 76 ADM/REG DATE : 02/25/17 MR#: [id number] REPORT SERV DATE: 02/26/17 DICTATED BY: CHAVA HANNAH DATE: 02/26/17 REPORT STATUS : Draft TRANSCRIBED BY: SHAMIKA DATE: 02/26/17 ALLERGIES: ASPIRIN. MEDICATIONS: Albuterol, vitamins C, folic acid, Plaquenil, methotrexate, Lopressor, potassium, prednisone, Zocor, Carafate, Prevacid, and vancomycin. REVIEW OF SYSTEMS: Unable to be obtained secondary to the patient's mental status. PHYSICAL EXAMINATION: VITAL SIGNS: Temperature is 98.4, pulse 85, respirations 18, and blood pressure 111/53. NEUROLOGIC: Reveals a chronically ill-appearing, debilitated female, resting in bed who opens her eyes. GENERAL: She is cooperative. She is in no obvious acute distress. Unable to assess orientation. HEAD, EARS, EYES, NOSE, AND THROAT: Anicteric. Pupils are equal, round, and reactive to light and accommodation. NECK: No JVD. No palpable nodes. LUNGS: Coarse with central congestion. She has a notable old tracheostomy site. CARDIOVASCULAR SYSTEM: Regular rate and rhythm. ABDOMEN: Soft, nontender, and nondistended with active bowel sounds. PEG in place with no drainage or redness surrounding it. EXTREMITIES: Notable for contractures, but no swelling or edema. SKIN: Warm, dry, and intact with noted ecchymosis in areas. PERTINENT LABORATORY DATA: Sodium 139, potassium 4, BUN is 31, and creatinine is 0.78. White count 5.5, hemoglobin 8.4, and hematocrit 26.7. INR of 1.1. LFTs are normal. ASSESSMENT: 1. Gastrointestinal bleed. Bright red blood per rectum per the 's reports x3 days. 2. History of upper Gastrointestinal bleed in January of this year secondary to duodenal ulceration. 3. Anemia, acute on chronic. 4. Cerebrovascular accident with debility. 5. Recent Clostridium difficile on Vancomycin. 6. Chronic obstructive pulmonary disease. PLAN: 1. Tube feeding n.p.o. after midnight. 2. Colon on 02/26/2017. 3. Bowel prep. 4. Follow H and H, and transfuse if needed. Other recommendations to follow endoscopy. Consultation Report [address] [place] [facility] [address] NAME: STEFANIA RIVER : 42 STATUS : ADM IN [facility]#: [id number] AGE: 76 ADM/REG DATE : 02/25/17 MR#: [id number] REPORT SERV DATE: 02/26/17 DICTATED BY: CHAVA HANNAH DATE: 02/26/17 REPORT STATUS : Draft TRANSCRIBED BY: SHAMIKA DATE: 02/26/17 LUC/SHAMIKA JEFFY Cruz / [id number] CC: Jovanna Ferris M.D.
[~2017-02-25 11:58] MED LIST changes: +CARASPUDL PEG; +MTX2.5 PEG; +PREVACID PEG; +VANCOCIN HCL125 MG PEG
[2017-02-25 13:18] LABS: BASOPHILS 0.4 %; BASOPHILS ABSOLUTE 0.04 10/3/uL (0.0-0.16); EOSINOPHILS 2.6 %; EOSINOPHILS ABSOLUTE 0.24 10/3/uL (0.0-0.53); ER CBC TAT 0 Hrs 09 Mins; HEMATOCRIT 27.9 % (36.0-48.0); HEMOGLOBIN 8.9 g/dL (12.0-16.0); IMMATURE GRANULOCYTES 0.2 %; IMMATURE GRANULOCYTES ABSOLUTE 0.02 10/3/uL (0.0-0.11); LYMPHOCYTES ABSOLUTE 1.01 10/3/uL (0.67-4.30); MEAN CORPUS HGB CONC 31.9 g/dL (32.0-36.0); MEAN CORPUSCULAR HEMOGLOB 27.7 pg (26.0-34.0); MEAN CORPUSCULAR VOLUME 86.9 fL (80-100); MEAN PLATELET VOLUME 8.3 fL (9.2-13.0); MONOCYTES 6.3 %; MONOCYTES ABSOLUTE 0.58 10/3/uL (0.21-1.20); NEUTROPHILS 79.5 %; NEUTROPHILS ABSOLUTE 7.28 10/3/uL (2.02-8.40); PLATELET COUNT 403 10/3/uL (150-400); RBC DISTRIBUTION WIDTH 15.2 % (12.0-16.0); WHITE BLOOD CELLS 9.2 10/3/uL (4.5-10.5)
[2017-02-25 13:20] LABS: MANUAL DIFF NO %; RED CELL COUNT 3.21 10/6/uL (4.0-5.6)
[2017-02-25 13:31] LABS: CALCIUM, SERUM 8.9 MG/DL (8.5-10.4); CHLORIDE, SERUM 99 MMOL/L (96-112); CREATININE 0.85 MG/DL (0.55-1.02); GFR AFRICAN AMERICAN 78 ML/MIN (>=60); GFR NON AFRICAN AMERICAN 67 ML/MIN (>=60); GLUCOSE, SERUM 106 MG/DL (60-99); SGPT(ALT) 21 U/L (5-65); SODIUM, SERUM 135 MMOL/L (135-148); TOTAL BILIRUBIN 0.4 MG/DL (0-1.2); TOTAL PROTEIN 6.9 G/DL (6.0-8.5)
[2017-02-25 13:33] LABS: A/G RATIO 0.5 (0.7-1.9); ALBUMIN 2.3 G/DL (3.5-5.0); ALKALINE PHOSPHATASE 95 U/L (45-117); BUN (BLOOD UREA NITROGEN) 45 MG/DL (6-23); CO2 (CARBON DIOXIDE) 30 MMOL/L (24-34); GLOBULIN 4.6 G/DL (2.5-4.1); POTASSIUM, SERUM 4.8 MMOL/L (3.5-5.3); SGOT(AST) 32 U/L (5-40)
[2017-02-25 14:07] LABS: INTERNATIONAL NORMAL RATI 1.1 UNITS (-); PARTIAL THROMBO TIME 32.6 SEC (22.5-37.2); PROTIME (NOT ORD) 14.4 SEC (12.0-14.5)
[2017-02-26 00:46] LABS: HEMOGLOBIN 7.5 g/dL (12.0-16.0)
[2017-02-26 00:53] LABS: HEMATOCRIT 23.9 % (36.0-48.0)
[2017-02-26 07:36] LABS: BASOPHILS 0.9 %; BASOPHILS ABSOLUTE 0.05 10/3/uL (0.0-0.16); EOSINOPHILS 6.4 %; EOSINOPHILS ABSOLUTE 0.35 10/3/uL (0.0-0.53); HEMOGLOBIN 8.4 g/dL (12.0-16.0); IMMATURE GRANULOCYTES 0.2 %; IMMATURE GRANULOCYTES ABSOLUTE 0.01 10/3/uL (0.0-0.11); LYMPHOCYTES 17.4 %; LYMPHOCYTES ABSOLUTE 0.95 10/3/uL (0.67-4.30); MEAN CORPUS HGB CONC 31.5 g/dL (32.0-36.0); MEAN CORPUSCULAR HEMOGLOB 27.4 pg (26.0-34.0); MEAN PLATELET VOLUME 7.8 fL (9.2-13.0); MONOCYTES 12.2 %; MONOCYTES ABSOLUTE 0.67 10/3/uL (0.21-1.20); NEUTROPHILS 62.9 %; NEUTROPHILS ABSOLUTE 3.44 10/3/uL (2.02-8.40); PLATELET COUNT 353 10/3/uL (150-400); RBC DISTRIBUTION WIDTH 15.2 % (12.0-16.0); RED CELL COUNT 3.07 10/6/uL (4.0-5.6)
[2017-02-26 07:40] LABS: HEMATOCRIT 26.7 % (36.0-48.0); MANUAL DIFF NO %; WHITE BLOOD CELLS 5.5 10/3/uL (4.5-10.5)
[2017-02-26 07:45] LABS: CALCIUM, SERUM 8.4 MG/DL (8.5-10.4); CHLORIDE, SERUM 105 MMOL/L (96-112); CO2 (CARBON DIOXIDE) 26 MMOL/L (24-34); CREATININE 0.78 MG/DL (0.55-1.02); GFR AFRICAN AMERICAN 87 ML/MIN (>=60); GFR NON AFRICAN AMERICAN 75 ML/MIN (>=60); GLUCOSE, SERUM 106 MG/DL (60-99); SODIUM, SERUM 139 MMOL/L (135-148)
[2017-02-26 07:46] LABS: BUN (BLOOD UREA NITROGEN) 31 MG/DL (6-23)
[2017-02-26 16:01] LABS: HEMOGLOBIN 7.1 g/dL (12.0-16.0)
[2017-02-26 16:02] LABS: HEMATOCRIT 21.9 % (36.0-48.0)
[2017-02-26 21:22] LABS: PHOSPHORUS, SERUM 3.6 MG/DL (2.5-4.5); PREALBUMIN 21.7 MG/DL (17.0-43.0)
[2017-02-27 06:28] LABS: BASOPHILS 0.7 %; BASOPHILS ABSOLUTE 0.04 10/3/uL (0.0-0.16); EOSINOPHILS 7.1 %; EOSINOPHILS ABSOLUTE 0.38 10/3/uL (0.0-0.53); IMMATURE GRANULOCYTES 0.4 %; IMMATURE GRANULOCYTES ABSOLUTE 0.02 10/3/uL (0.0-0.11); LYMPHOCYTES 15.1 %; LYMPHOCYTES ABSOLUTE 0.81 10/3/uL (0.67-4.30); MEAN CORPUSCULAR HEMOGLOB 29.5 pg (26.0-34.0); MEAN CORPUSCULAR VOLUME 87.6 fL (80-100); MONOCYTES 10.4 %; MONOCYTES ABSOLUTE 0.56 10/3/uL (0.21-1.20); NEUTROPHILS 66.3 %; NEUTROPHILS ABSOLUTE 3.55 10/3/uL (2.02-8.40); PLATELET COUNT 308 10/3/uL (150-400); RBC DISTRIBUTION WIDTH 14.6 % (12.0-16.0); WHITE BLOOD CELLS 5.4 10/3/uL (4.5-10.5)
[2017-02-27 06:30] LABS: HEMATOCRIT 35.4 % (36.0-48.0); HEMOGLOBIN 11.9 g/dL (12.0-16.0); MANUAL DIFF NO %; MEAN CORPUS HGB CONC 33.6 g/dL (32.0-36.0); RED CELL COUNT 4.04 10/6/uL (4.0-5.6)
[2017-02-27 06:34] LABS: INTERNATIONAL NORMAL RATI 1.1 UNITS (-); PROTIME (NOT ORD) 14.4 SEC (12.0-14.5)
[2017-02-27 06:42] LABS: CALCIUM, SERUM 8.7 MG/DL (8.5-10.4); CHLORIDE, SERUM 109 MMOL/L (96-112); CREATININE 0.66 MG/DL (0.55-1.02); GFR AFRICAN AMERICAN 101 ML/MIN (>=60); GFR NON AFRICAN AMERICAN 87 ML/MIN (>=60); POTASSIUM, SERUM 3.8 MMOL/L (3.5-5.3); SODIUM, SERUM 143 MMOL/L (135-148)
[2017-02-27 06:44] LABS: BUN (BLOOD UREA NITROGEN) 14 MG/DL (6-23); CO2 (CARBON DIOXIDE) 21 MMOL/L (24-34); GLUCOSE, SERUM 63 MG/DL (60-99)
[2017-02-27 15:55] LABS: BASOPHILS ABSOLUTE 0.06 10/3/uL (0.0-0.16); EOSINOPHILS 2.7 %; EOSINOPHILS ABSOLUTE 0.16 10/3/uL (0.0-0.53); HEMATOCRIT 36.2 % (36.0-48.0); HEMOGLOBIN 12.1 g/dL (12.0-16.0); IMMATURE GRANULOCYTES 0.3 %; IMMATURE GRANULOCYTES ABSOLUTE 0.02 10/3/uL (0.0-0.11); LYMPHOCYTES 9.6 %; LYMPHOCYTES ABSOLUTE 0.57 10/3/uL (0.67-4.30); MEAN CORPUS HGB CONC 33.4 g/dL (32.0-36.0); MEAN CORPUSCULAR HEMOGLOB 29.2 pg (26.0-34.0); MEAN CORPUSCULAR VOLUME 87.4 fL (80-100); MEAN PLATELET VOLUME 8.1 fL (9.2-13.0); MONOCYTES 8.1 %; MONOCYTES ABSOLUTE 0.48 10/3/uL (0.21-1.20); NEUTROPHILS 78.3 %; NEUTROPHILS ABSOLUTE 4.63 10/3/uL (2.02-8.40); PLATELET COUNT 304 10/3/uL (150-400); RBC DISTRIBUTION WIDTH 14.8 % (12.0-16.0); RED CELL COUNT 4.14 10/6/uL (4.0-5.6); WHITE BLOOD CELLS 5.9 10/3/uL (4.5-10.5)
[2017-02-27 15:57] LABS: MANUAL DIFF NO %
[2017-02-28] MEDS ORDERED: ANUSOL HC PR (14:15)
[2017-02-28] MEDS ORDERED: VANCOMYCIN (14:17)
[2017-05-05] MEDS ORDERED: ACET500CAP PEG (11:38)
[2017-05-05] MEDS ORDERED: KLOR-CON20 MEQ PEG (11:39)
[2017-05-05] MEDS ORDERED: PLAQ200B PEG (11:40)
[2017-05-05] MEDS ORDERED: PREDNISONE2.5 MG PEG (11:40)
[2017-05-05] MEDS ORDERED: SUCR PO (11:41)
[2017-05-05] MEDS ORDERED: LOP50 PEG (11:41)
[2017-05-05] MEDS ORDERED: FOLIC PEG (11:41)
[2017-05-05] MEDS ORDERED: VITC500 PEG (11:41)
[2017-05-05] MEDS ORDERED: DUONEB INH (11:42)
[2017-05-05] MEDS ORDERED: ZOCOR20 PEG (11:43)
[2017-05-05] MEDS ORDERED: FLORASTOR250 MG PO (11:44)
== END 2017-02-28 16:21 | disposition home health service (06) | DRG 393 ==
LOC: ER 11:58 → 5SO 17:17
PROVIDERS: Emergency Medicine; Internal Medicine; Internal Medicine Gastroenterology; Nurse Practitioner Family
DX: K64.9 Unspecified hemorrhoids (principal); L89.013 Pressure ulcer of right elbow, stage 3; A04.7 Enterocolitis due to Clostridium difficile; J44.9 Chronic obstructive pulmonary disease, unspecified; R13.10 Dysphagia, unspecified; D62 Acute posthemorrhagic anemia; Z53.09 Procedure and treatment not carried out because of other contraindication; I69.320 Aphasia following cerebral infarction; I69.391 Dysphagia following cerebral infarction; Z66 Do not resuscitate; M06.9 Rheumatoid arthritis, unspecified; I10 Essential (primary) hypertension; E78.5 Hyperlipidemia, unspecified; Z87.11 Personal history of peptic ulcer disease; Z93.1 Gastrostomy status; Z82.49 Family history of ischemic heart disease and other diseases of the circulatory system; Z83.3 Family history of diabetes mellitus; Z87.891 Personal history of nicotine dependence; Z79.899 Other long term (current) drug therapy; Z74.01 Bed confinement status; Z88.6 Allergy status to analgesic agent
CPT/HCPCS: 36415; 80048; 80053; 83735; 84100; 84134; 85014; 85018; 85025; 85610; 85730; 86850; 86900; 86901; 86902; 86920; 86922; 97166-GO; 97760-GO; 99285; A9270-GY; C9113; G8987-CN-GO; G8988-CN-GO; G8989-CN-GO; P9016

== ENCOUNTER 2017-03-12 17:03 | Inpatient (IN) | payer MEDICARE, OTHER ==
--- NOTE | ~2017-03-12 | CN ---
Consultation Report [facility] [address] [place]. [address] NAME: STEFANIA RIVER : 44 STATUS : ADM IN [facility]#: [id number] AGE: 76 ADM/REG DATE : 03/12/17 MR#: [id number] REPORT SERV DATE: 03/18/17 DICTATED BY: JACKIE BORREGO III DATE: 03/17/17 REPORT STATUS : Draft TRANSCRIBED BY: SHAMIKA DATE: 03/17/17 CONSULTATION DATE OF CONSULTATION: HISTORY OF PRESENT ILLNESS: Stefania River was admitted on 03/12/2017 with hypoxic respiratory failure, aspiration pneumonia, sepsis, recovering on continued treatment for C diff colitis on p.o. vancomycin and IV Flagyl, late effects of CVAs, disfiguring rheumatoid arthritis, and a right elbow decubitus, which has been followed in the Wound Center. She also has an early stage II sacral decubitus. The patient was admitted and started on antibiotics for her pneumonia and continued therapy on her elbow wound. The patient is followed in the [facility]aling [facility] for a number of weeks with limited success for her right elbow wound, which is mostly decubitus. She has recently come off her wound VAC therapy and placed on a Mepilex Ag to the area with extension brace that has been utilized to try and help get better extensions and she has contracture with hyperflexion of the right elbow joint. The patient continues to improve slowly from her respiratory failure with continued therapy on her C diff, also on Plaquenil and methotrexate for her rheumatoid arthritis disease. PHYSICAL EXAMINATION: GENERAL: On exam, she is an obtunded white female with gurgling breath sounds and nonverbal communication, only wincing to pain. She is a 76-year-old female followed in the Wound Healing Center. HEENT: Exam showed no particular change. CHEST: With rhonchi and rales. ABDOMEN: Soft with a PEG tube and she is dependent on those feedings. EXTREMITIES: Her lower extremities were atrophic. She has a small stage II, 2.5 x 3 cm, sacral defect treated with Mepilex. The patient's right elbow is contractured, but this has been relieved some by extension exercises and a brace, which has been fitted over the last couple of weeks. Over the olecranon bursa region is a 5 x 6 x 0.2 cm granulating ulcer that is present with some skin necrosis on the distal edge from the 3 to 6 o'clock position. Debridement will be done on this to clean this up. She has moderate edema of the entire right arm with the extensor brace probably contributing to this edema as well as her low protein and inactive state. Patient has been seen by Dr. Bunn in the wound center, who recommended a closure done by pulling the ends together as an ellipse and this has been attempted in the wound center, but has been quite unsuccessful. Problems contributing to this lack of success including the hyperflexion and extremely poor nutrition. The wound has recently had a VAC discontinued to it and more topical therapy applied. The patient's pre-albumin 03/14 was 6.1, which is severe protein malnutrition and her albumin is 1.7. Local care has been ordered and discussion with the about the patient's management, who is very unrealistic about expectations for healing of her elbow wound. She has been a DNR in the past, certainly see nothing that would change this status. Consultation Report [address] [address] NAME: STEFANIA RIVER : 42 STATUS : ADM IN [facility]#: [id number] AGE: 76 ADM/REG DATE : 03/12/17 MR#: [id number] REPORT SERV DATE: 03/18/17 DICTATED BY: JACIKE BORREGO III DATE: 03/17/17 REPORT STATUS : Draft TRANSCRIBED BY: SHAMIKA DATE: 03/17/17 IMPRESSION: She has hypoxemia secondary to aspiration pneumonia with problems with secretion management. She is protein malnourished with severe contracturing and chronic ulceration of the right elbow, which is clean and not infected, but clearly not healing much with still some residual skin necrosis, which needs debridement. RB/WALEL Jackie Borrego III, M.D. / [id number] CC: Jovanna Rowland M.D. Robert Mastey, M.D. [facility]
--- NOTE | ~2017-03-12 | HP ---
History And Physical [address] [address] NAME: STEFANIA COLES : 42 STATUS : ADM IN PAT#: [id number] AGE: 76 ADM/REG DATE : 03/12/17 MR#: [id number] REPORT SERV DATE: 03/13/17 DICTATED BY: ZAIDA FLAHERTY DATE: 03/12/17 REPORT STATUS : Draft TRANSCRIBED BY: MODCodie DATE: 03/12/17 DATE OF ADMISSION: 03/12/2017 CHIEF COMPLAINT: A 76-year-old female with debilitation from previous stroke with a PEG tube, now presenting with aspiration pneumonia. HISTORY OF PRESENT ILLNESS: The patient's history was obtained through careful interview with the patient and coupled with review of [facility] medical records. The patient for about three days has become increasingly lethargic with increasing shortness of breath, a "gurgling" sound and increasing cough productive of occasional yellow sputum. She has developed fevers, chills, and has become increasingly more lethargic and sometimes distressed from shortness of breath and coughing. She has recently been diagnosed with C. diff colitis, but now the diarrhea has subsided completely. There is no blood in her stools either. No nausea or vomiting. The patient is exhibiting no pain behavior. REVIEW OF SYSTEMS: Otherwise, a 14-point review of systems was obtained and was negative. PAST MEDICAL HISTORY: 1. Stroke with chronic disability, aphasia, rheumatoid arthritis crippling, on methotrexate and Plaquenil. 2. Right elbow pressure ulcer and sacral sores, followed by Dr. Tylor Borrego. 3. Peptic ulcer disease, seen by Dr. Edmondson. 4. COPD. 5. Pneumonia. 6. C. diff colitis. 7. Fatty liver disease. 8. Osteonecrosis of the right femoral head. PAST SURGICAL HISTORY: 1. Brain surgery. 2. PEG tube placement. 3. Tracheostomy. ALLERGIES: ASPIRIN. SOCIAL HISTORY: Quit smoking about three years ago. Quit alcohol about 10 years ago. She is . Lives in [place], [place], with her who is her primary care provider. History And Physical [address] [address] NAME: STEFANIA COLES : 42 STATUS : ADM IN PAT#: [id number] AGE: 76 ADM/REG DATE : 03/12/17 MR#: [id number] REPORT SERV DATE: 03/13/17 DICTATED BY: ZAIDA FLAHERTY DATE: 03/12/17 REPORT STATUS : Draft TRANSCRIBED BY: SHAMIKA DATE: 03/12/17 FAMILY HISTORY: Diabetes, cancer. Daughter from an accidental overdose. CURRENT MEDICATIONS: Include Tylenol, DuoNeb nebulizers, vitamin C, folic acid, Plaquenil 200 mg every morning, methotrexate weekly, Lopressor 50 mg in the morning, prednisone 2.5 mg daily, potassium, Florastor 250 mg twice a day, Zocor 20 mg at bedtime, sucralfate four times a day, Prevacid 10 mL every morning, Vancocin 125 mg twice a day. PHYSICAL EXAMINATION: VITAL SIGNS: Temperature 101.0, pulse 120, blood pressure 106/53, respiratory rate 18, and O2 saturation 75% on room air. The patient only saturate 88% to 89% on a 100% non- rebreather. HEENT: Pupils equal, round, and reactive to light. No conjunctival pallor. No scleral icterus. Nares are patent. Oropharynx is clear of obstruction. GENERAL: A toxic and chronically ill-appearing female, in evidence of distress secondary to cough and shortness of breath. NECK: Trachea midline. No thyromegaly. LYMPH: No cervical lymphadenopathy. No supraclavicular lymphadenopathy. RESPIRATORY: Scattered rhonchi predominate in examination. No wheezes currently. No rales. The patient has a quite labored respiratory effort. CARDIOVASCULAR: Tachycardic. Regular rhythm. No murmurs, rubs, or gallops. No extremity edema is appreciated. ABDOMEN: Soft, nontender, nondistended. Normal bowel sounds auscultated throughout. No hepatosplenomegaly. DERMATOLOGICAL: Warm and dry extremities. No pallor. No cyanosis. PSYCHIATRIC: Normal affect. Pleasant mood. She has difficulty with communication, but is appropriate, alert. LABORATORY DATA: White blood count 13.5 with 10% bands, hemoglobin 11, hematocrit 34, platelets 373. Sodium 144, potassium 4.0, chloride 106, bicarb 30, BUN 60, creatinine 1.05, glucose 136, procalcitonin 1.17, lactic acid 1.4. INR 1.3. Alkaline phosphatase 157. ABG demonstrates pH 7.49, a PaCO2 of 34, a PaO2 of 56, and a bicarb of 26 on 100% non- rebreather. STUDIES: 1. Chest x-ray by my own evaluation shows right upper lung disease, right lower lung disease, left lower lung pneumonia, chronic interstitial lung disease changes, and COPD. 2. EKG by my own evaluation shows sinus rhythm. ASSESSMENT AND PLAN: 1. Hypoxic respiratory failure. Provide supportive care. 2. Aspiration pneumonia. Check blood cultures. Place on IV antibiotics including cefepime and vancomycin. 3. Sepsis. Check blood cultures. Place on IV antibiotics. The patient has positive criteria that includes tachycardia, fever of 101.0, hypoxia, and white blood cell count of 13.5. 4. Recovering Clostridium difficile colitis. Continue p.o. Vancocin and IV Flagyl. History And Physical [address] [address] NAME: STEFANIA COLES : 42 STATUS : ADM IN [facility]#: [id number] AGE: 76 ADM/REG DATE : 03/12/17 MR#: [id number] REPORT SERV DATE: 03/13/17 DICTATED BY: ZAIDA FLAHERTY DATE: 03/12/17 REPORT STATUS : Draft TRANSCRIBED BY: SHAMIKA DATE: 03/12/17 5. Late effects of stroke. 6. Rheumatoid arthritis. Disfiguring. 7. Right elbow decubitus and sacral sore. Obtain a Wound Care consult. Turn q.2 hours. KPL/MODL Zaida Flaherty M.D. / [id number] CC: Jovanna Fink M.D.
--- NOTE | ~2017-03-12 | OP ---
Record Of Operation [facility] [address] [place]. [address] NAME: STEFANIA COLES : 42 STATUS : ADM IN [facility]#: [id number] AGE: 76 ADM/REG DATE : 03/12/17 MR#: [id number] REPORT SERV DATE: 03/17/17 DICTATED BY: JACKIE BORREGO III DATE: 03/17/17 REPORT STATUS : Draft TRANSCRIBED BY: SHAMIKA DATE: 03/17/17 DATE OF PROCEDURE: PROCEDURE: An excisional debridement of a right elbow wound. ANESTHESIA: There was no anesthesia necessary. PREOPERATIVE DIAGNOSIS: Necrosis along the skin edges on the distal elbow wound from 3-6 o'clock requiring debridement. DESCRIPTION OF PROCEDURE: The patient was prepped and draped in routine fashion after time out and agreement with all personnel in the room. Pickups and scissors were used to trim away excisionally the devitalized skin along this area which was about a half a centimeter layered tissue back to more viable granulation tissue. Bleeding was brisk and controlled with silver nitrate and pressure. The patient's INR was 1.4 on 03/13/2017. Wound was then examined and complete removal of all devitalized tissue had been accomplished. Aquacel Ag was then applied with Kerlix dressing material and the cast padding and brace are to be reapplied when more cast padding is available. The dimensions of the wound following this procedure were 5 x 6.5 x 0.2. RB/SHAMIKA Jackie Borrego III, M.D. / [id number] CC: Jovanna Rowland M.D.
--- NOTE | ~2017-03-12 | DS ---
Discharge Summary [place] [address] [facility] [place]. [address] NAME: STEFANIA COLES : 42 STATUS : DIS IN PAT#: [id number] AGE: 76 ADM/REG DATE : 03/12/17 MR#: [id number] REPORT SERV DATE: 03/22/17 DICTATED BY: DATE: REPORT STATUS : Draft TRANSCRIBED BY: MODL DATE: 03/22/17 ADMISSION DATE: 03/12/2017 DISCHARGE DATE: 03/22/2017 The patient was admitted to the [facility]. ATTENDING PHYSICIAN: Charles Arita M.D. DISCHARGE DIAGNOSES: 1. Acute on chronic hypoxemic respiratory failure. 2. Recurrent aspiration pneumonia-present at admission, status post seven days of broad- spectrum antibiotics. 3. Sepsis syndrome-resolved. 4. Severe oropharyngeal dysphagia requiring PEG tube. 5. Severe protein-calorie malnutrition. 6. Late effects of cerebrovascular accident. 7. Rheumatoid arthritis. 8. Deep tissue injury of the right elbow-present at admission, stage IV. 9. Recurrent Clostridium difficile infection-for prolonged taper. 10.Acute kidney injury present at admission-resolved. CONSULTANTS: Included Dr. Lopez of Pulmonology, Dr. Borrego of General Surgery Wound Care. IMAGING: Included multiple portable chest x-rays. BRIEF HISTORY: For full details, please see the previously dictated history of present illness by Dr. Ernst Bach. This is a 76-year-old white female with debilitation from prior stroke with PEG tube, known aspiration events, history of C difficile with recent recurrence. She was brought to the emergency department by her with several days of increasing lethargy, shortness of breath, "gurgling in the chest," and cough productive of occasional yellow sputum. She developed fevers and chills. Evaluation in the emergency department was consistent with sepsis, hypoxemic respiratory failure, recurrent aspiration pneumonia. The patient was admitted to the [facility] for further evaluation. HOSPITAL COURSE: For full details, please see the previously dictated interim summary by Dr. Charles Arita for dates of service 03/12/2017 through 03/21/2017. The patient completed a week's course of broad-spectrum antimicrobial with the addition of oral vancomycin given history of recent C difficile infection. The patient had no positive cultures, and after seven days, therapy was discontinued except for the oral vancomycin, which will be placed on a tapering dose to prevent re-development of C difficile infection. I assumed care of the patient on 03/22/2017, at which point, her thought that she was at baseline and that continued hospitalization would only result in further weakness and Discharge Summary [place] [address] [place]. [address] NAME: STEFANIA COLES : 42 STATUS : DIS IN PAT#: [id number] AGE: 76 ADM/REG DATE : 03/12/17 MR#: [id number] REPORT SERV DATE: 03/22/17 DICTATED BY: DATE: REPORT STATUS : Draft TRANSCRIBED BY: MODL DATE: 03/22/17 decline in the patient's functional status. He remained insistent on discharge to home and continued to refuse any type of chcf facility placement. He did state that he from time to time likes to give the patient small amounts of food, for comfort and pleasure. He was counseled that this was not in the patient's best medical interest, and it was not consistent with prior determinations that she is a full code. He stated that he was willing to sign a POLST form updating her wishes to reflect do not resuscitate and do not intubate. The POLST form was complete prior to discharge. Home oxygen was arranged for the patient 2 L continuously because resting oxygen saturations were 86% on room air. DISCHARGE DISPOSITION: Discharge disposition to care in the home of her supportive who provides her total care. Followup appointment with Dr. Binh Lopez in four to six weeks regarding aspiration events. DISCHARGE MEDICATIONS: 1. Vitamin C 500 mg per PEG q.a.m. 2. Folic acid 1 mg per PEG q.a.m. 3. Plaquenil 200 mg per PEG q.a.m. 4. Methotrexate-presently on hold, until further instruction by Dr. Velez. 5. Lopressor 50 mg per PEG q.a.m. 6. Florastor 250 mg per PEG twice a day. 7. Zocor 20 mg per PEG at bedtime. 8. Sucralfate 1 g per PEG every six hours. 9. Scopolamine transdermal patch 1 patch topical q.72 hours-to decrease oral secretions. 10.Vancomycin 125 mg per PEG every six hours for 14 days, then 125 mg per PEG every eight hours for seven days, then 125 mg per PEG every 12 hours for seven days, then 125 mg per PEG daily for seven days, then discontinue. 11.Prednisone 2.5 mg p.o. q.a.m. 12.Tylenol 500 mg per PEG twice a day as needed for pain. 13.Potassium chloride 20 mEq per PEG q.a.m. 14.DuoNeb one neb inhaled twice a day as needed. 15.Prevacid 10 mL per PEG q.a.m. The patient's will continue their home tube feed regimen at discharge. 40 minutes was spent in completion of the discharge. ROGELIO/SHAMIKA Allan Perry M.D. Discharge Summary [address] [address] NAME: STEFANIA COLES : 42 STATUS : DIS IN PAT#: [id number] AGE: 76 ADM/REG DATE : 03/12/17 MR#: [id number] REPORT SERV DATE: 03/22/17 DICTATED BY: DATE: REPORT STATUS : Draft TRANSCRIBED BY: SHAMIKA DATE: 03/22/17 / [id number] CC: Jovanna Reynoso M.D. Carlos Baleeiro, M.D.
--- NOTE | ~2017-03-12 | CN ---
Consultation Report [facility] [address] [place]. [address] NAME: STEFANIA RIVER : 42 STATUS : ADM IN [facility]#: [id number] AGE: 76 ADM/REG DATE : 03/12/17 MR#: [id number] REPORT SERV DATE: 03/13/17 DICTATED BY: MONSE LOPEZ DATE: 03/13/17 REPORT STATUS : Draft TRANSCRIBED BY: SHAMIKA DATE: 03/13/17 CONSULTATION DATE OF CONSULTATION: Thank you for the opportunity to consult on this patient. HISTORY OF PRESENT ILLNESS: Ms. River is known to our group. I see her in our Pulmonary office for followup of her chronic respiratory failure. She is a 76-year-old woman with previous cerebrovascular disease with decreased alertness, decreased pulmonary clearance, who had developed [id number] respiratory failure with a prolonged episode of respiratory failure, requiring mechanical ventilation. She had been at a fdc facility, was eventually weaned off mechanical ventilation. She went home with her family and was eventually actually decannulated and has done well staying off mechanical ventilation and without major problems even after removal of her trach. She came in this time with increased respiratory secretions, gurgling sounds, coughing, more respiratory distress, and appears to have had a new aspiration episode. PAST MEDICAL HISTORY: Significant for arthritis, cerebrovascular disease, hypertension, chronic respiratory failure off trach and off vent. SOCIAL HISTORY: Negative for tobacco abuse, alcohol abuse, or illicit drug use. FAMILY HISTORY: Noncontributory to this presentation. REVIEW OF SYSTEMS: Review of 10 systems could not be obtained since she is nonverbal. It was based on what is noted on the chart. PHYSICAL EXAMINATION: GENERAL: On exam, she is chronically ill-appearing, though in no acute distress. She is awake. HEENT: Has some bruises. NECK: Supple. No lymphadenopathy. No JVD. CHEST: Symmetric with good expansion bilaterally. LUNGS: Have coarse breath sounds with occasional rhonchi. CARDIOVASCULAR: She has S1 and S2, which are regular rate and rhythm. ABDOMEN: Benign. She has no edema. No clubbing. No cyanosis. ASSESSMENT AND PLAN: Respiratory failure. The patient has a new episode of aspiration pneumonia. We agree with continuing antibiotic therapy. She is actually holding okay without major hypoxemia and we will continue to monitor her with you. We will monitor her response to antibiotics and see if we can discontinue at least vancomycin. Despite her previous stay at a fdc facility, she has been home, so she is less likely to have multi-drug resistant organisms that would require a more prolonged course of broad- Consultation Report [place] [address] [place]. [address] NAME: STEFANIA IRVER : 42 STATUS : ADM IN PAT#: [id number] AGE: 76 ADM/REG DATE : 03/12/17 MR#: [id number] REPORT SERV DATE: 03/13/17 DICTATED BY: MONSE LOPEZ DATE: 03/13/17 REPORT STATUS : Draft TRANSCRIBED BY: SHAMIKA DATE: 03/13/17 spectrum antibiotic therapy. We appreciate the opportunity to participate in her care with you. Please do not hesitate to contact me if I could be of any further assistance. SULY/SHAMIKA Monse Lopez M.D. / [phone] CC: Charles Arita M.D.
--- NOTE | ~2017-03-12 | IDS ---
Interim Discharge Summary [facility] [address] [place]. [address] NAME: STEFANIA COLES : 42 STATUS : ADM IN [facility]#: [id number] AGE: 76 ADM/REG DATE : 03/12/17 MR#: [id number] REPORT SERV DATE: 03/21/17 DICTATED BY: Charles SYKES DATE: 03/21/17 REPORT STATUS : Draft TRANSCRIBED BY: MODL DATE: 03/21/17 ADMISSION DATE: 03/12/2017 DISCHARGE DATE: INTERIM SUMMARY DATE: 03/21/2017. DIAGNOSES AT THE TIME OF INTERIM SUMMARY: Acute on chronic hypoxic respiratory failure; recurrent aspiration pneumonia, present on admission, antimicrobial therapy complete; sepsis syndrome, resolved; severe oropharyngeal dysphagia requiring PEG tube; severe protein- calorie malnutrition; late effects of cerebrovascular accident; rheumatoid arthritis; deep tissue injury, right elbow, present on admission, stage IV; recurrent Clostridium difficile infection on taper and oral vancomycin. ACTIVE CONSULTATIONS: Pulmonology, General Surgery, Wound Care. PROCEDURES: None. BRIEF HOSPITAL COURSE: A 76-year-old female patient with extensive medical history, was admitted with recurrent respiratory failure secondary to aspiration pneumonia, placed in intermediate care for support. The patient completed a week's course of broad-spectrum antimicrobial therapy with the addition of oral vancomycin given her history of recent C. diff infection. The patient had no positive cultures and after seven days, her therapy was discontinued except for the oral vancomycin which will be placed on a tapering dose until we allow pentecostalism of gut talya and to prevent redevelopment of C. diff infection. Unfortunately, the patient has significant debility related to her previous stroke. She has increased secretions and inability to control her airway. She remains a full code as well her insist on the patient being home with him and not allow for placement which makes readmission highly likely. 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 This is chronically managed by Dr. Javed Borrego. No intervention is planned. It is felt that this will not likely heal given her functional status and very poor nutrition. Of note, her pre-albumin was 4. The patient continues to get supportive care. We are hoping that case management can convince the to let her be placed for ongoing wound care and medical therapy. However, if he continues to be disagreeable and wants the patient home with home health care, it is likely she can be discharged relatively soon as there is little benefit to ongoing hospitalization at this juncture. However, as mentioned above, her readmission rate is extremely high because of her multiple comorbidities. Today, we will add a scopolamine patch and change every three days and hopes that we can decrease some of her secretions and limit the risk of aspiration. Her labs have been stable including CBC and electrolytes. The patient's hospitalist care will be provided by another member of the team starting 03/22/2017 and will continue until the patient is discharged or transitioned to shelter depending on the 's preference. [facility]/SHAMIKA Interim Discharge Summary [address] [address] NAME: STEFANIA COLES : 42 STATUS : ADM IN [facility]#: [id number] AGE: 76 ADM/REG DATE : 03/12/17 MR#: [id number] REPORT SERV DATE: 03/21/17 DICTATED BY: Charles SYKES DATE: 03/21/17 REPORT STATUS : Draft TRANSCRIBED BY: SHAMIKA DATE: 03/21/17 Charles Sykes M.D. / [id number] CC: Charles Sykes M.D.
[2017-03-12 16:16] LABS: ALLENS TEST Pos; BE (BASE EXCESS) 2.4 MEQ/L (0 +/- 2.5); CARBOXYHEMOGLOBIN 1.1 % (0-3); DEVICE TM; HCO3 (ACTUAL BICARBONATE) 25.6 MEQ/L (23-27); HEMOBLOGIN CONTENT 11.4 G/DL (12-16); INSTRUMENT SERIAL # 8087; METHEMOGLOBIN 0.2 % (0-3); O2 CONTENT 14.1 VOL% (18-24); PCO2 (CO2 TENSION) 34 MMHG (35-45); PO2 (O2 TENSION) 56 MMHG (79-93); SAMPLE Arterial; pH 7.49 (7.37-7.43)
[2017-03-12 16:54] LABS: BASOPHILS 0.1 %; BASOPHILS ABSOLUTE 0.01 10/3/uL (0.0-0.16); EOSINOPHILS 0 %; HEMATOCRIT 34.2 % (36.0-48.0); HEMOGLOBIN 10.9 g/dL (12.0-16.0); IMMATURE GRANULOCYTES 0.4 %; IMMATURE GRANULOCYTES ABSOLUTE 0.06 10/3/uL (0.0-0.11); LYMPHOCYTES 1.6 %; LYMPHOCYTES ABSOLUTE 0.22 10/3/uL (0.67-4.30); MEAN CORPUS HGB CONC 31.9 g/dL (32.0-36.0); MEAN CORPUSCULAR HEMOGLOB 28.2 pg (26.0-34.0); MEAN CORPUSCULAR VOLUME 88.4 fL (80-100); MEAN PLATELET VOLUME 8.5 fL (9.2-13.0); MONOCYTES 7.3 %; MONOCYTES ABSOLUTE 0.99 10/3/uL (0.21-1.20); NEUTROPHILS 90.6 %; NEUTROPHILS ABSOLUTE 12.26 10/3/uL (2.02-8.40); PLATELET COUNT 373 10/3/uL (150-400); RBC DISTRIBUTION WIDTH 16.4 % (12.0-16.0); RED CELL COUNT 3.87 10/6/uL (4.0-5.6)
[2017-03-12 17:01] LABS: ER CBC TAT 0 Hrs 14 Mins; MANUAL DIFF NO %; WHITE BLOOD CELLS 13.5 10/3/uL (4.5-10.5)
[~2017-03-12 17:03] MED LIST changes: +ANUSOL HC PR; +VANCOMYCIN
[2017-03-12 17:08] LABS: A/G RATIO 0.4 (0.7-1.9); CALCIUM, SERUM 8.7 MG/DL (8.5-10.4); CHLORIDE, SERUM 106 MMOL/L (96-112); CREATININE 1.05 MG/DL (0.55-1.02); GFR AFRICAN AMERICAN 61 ML/MIN (>=60); GFR NON AFRICAN AMERICAN 52 ML/MIN (>=60); GLOBULIN 5.4 G/DL (2.5-4.1); SGOT(AST) 23 U/L (5-40); SGPT(ALT) 29 U/L (5-65); SODIUM, SERUM 144 MMOL/L (135-148); TOTAL BILIRUBIN 0.4 MG/DL (0-1.2); TOTAL PROTEIN 7.4 G/DL (6.0-8.5)
[2017-03-12 17:09] LABS: ALKALINE PHOSPHATASE 157 U/L (45-117); BUN (BLOOD UREA NITROGEN) 60 MG/DL (6-23); CO2 (CARBON DIOXIDE) 30 MMOL/L (24-34); GLUCOSE, SERUM 156 MG/DL (60-99)
[2017-03-12 17:11] LABS: LACTATE 1.4 MMOL/L (0.3-2.4)
[2017-03-12 17:14] LABS: BAND NEUTROPHILS 10 %; ER DIFF TAT 0 Hrs 27 Mins; LYMPHOCYTES 4 %; LYMPHOCYTES ABSOLUTE (CALC) 0.54 10/3/uL (0.67-4.30); MONOCYTES 4 %; MONOCYTES ABSOLUTE (CALC) 0.54 10/3/uL (0.21-1.20); NEUTROPHILS ABSOLUTE (CALC) 12.42 10/3/uL (2.02-8.40); OVALOCYTES 1+ (3-10/OIF) (0-2/OIF); PLATELET ESTIMATE ADQ (ADEQUATE); SEGMENTED NEUTROPHIL (0) 82 %; SPHEROCYTES FEW (3-10/OIF); TEARDROP SHAPED RBCS OCC (0-2/OIF); TOTAL NUCLEATED CELLS 100
[2017-03-12 17:15] LABS: INTERNATIONAL NORMAL RATI 1.3 UNITS (-); PARTIAL THROMBO TIME 36.4 SEC (22.5-37.2)
[2017-03-12 17:35] LABS: PROCALCITONIN 1.19 ng/mL (<0.5)
[2017-03-12] MEDS ORDERED: VANCOCIN HCL125 MG PO ×2 (18:16→18:17)
[2017-03-12 21:31] LABS: ASCORBIC ACID (UR NOT ORDER) 40 (NEG); BILIRUBIN, URINE NEGATIVE (NEG); ER URINALYSIS TAT 0 Hrs 12 Mins; KETONE, URINE NEGATIVE (NEG); LEUKOCYTE ESTERASE(NOT OR MOD (NEG); NITRITE (URINE) NEG (NEG); WBC (NOT ORDERED) (RFLEX) 34 (0-5)
[2017-03-13 05:24] LABS: HEMOGLOBIN 9.6 g/dL (12.0-16.0); MEAN CORPUS HGB CONC 31.9 g/dL (32.0-36.0); MEAN CORPUSCULAR HEMOGLOB 28.2 pg (26.0-34.0); MEAN CORPUSCULAR VOLUME 88.5 fL (80-100); MEAN PLATELET VOLUME 8.2 fL (9.2-13.0); PLATELET COUNT 327 10/3/uL (150-400); RBC DISTRIBUTION WIDTH 16.1 % (12.0-16.0)
[2017-03-13 05:26] LABS: HEMATOCRIT 30.1 % (36.0-48.0); MANUAL DIFF YES %
[2017-03-13 05:30] LABS: INTERNATIONAL NORMAL RATI 1.4 UNITS (-); PARTIAL THROMBO TIME 37.1 SEC (22.5-37.2); PROTIME (NOT ORD) 16.7 SEC (12.0-14.5)
[2017-03-13 05:41] LABS: A/G RATIO 0.4 (0.7-1.9); ALBUMIN 1.7 G/DL (3.5-5.0); CALCIUM, SERUM 8.3 MG/DL (8.5-10.4); CHLORIDE, SERUM 115 MMOL/L (96-112); CREATININE 0.67 MG/DL (0.55-1.02); GFR AFRICAN AMERICAN 100 ML/MIN (>=60); GFR NON AFRICAN AMERICAN 87 ML/MIN (>=60); GLOBULIN 4.5 G/DL (2.5-4.1); POTASSIUM, SERUM 3.7 MMOL/L (3.5-5.3); SGOT(AST) 16 U/L (5-40); SGPT(ALT) 20 U/L (5-65); SODIUM, SERUM 148 MMOL/L (135-148); TOTAL BILIRUBIN 0.4 MG/DL (0-1.2); TOTAL PROTEIN 6.2 G/DL (6.0-8.5); TROPONIN I <0.02 NG/ML (<0.05)
[2017-03-13 05:43] LABS: ALKALINE PHOSPHATASE 122 U/L (45-117); BUN (BLOOD UREA NITROGEN) 42 MG/DL (6-23); CO2 (CARBON DIOXIDE) 23 MMOL/L (24-34); GLUCOSE, SERUM 79 MG/DL (60-99)
[2017-03-13 05:47] LABS: BAND NEUTROPHILS 12 %; LYMPHOCYTES 4 %; LYMPHOCYTES ABSOLUTE (CALC) 0.52 10/3/uL (0.67-4.30); MONOCYTES 6 %; MONOCYTES ABSOLUTE (CALC) 0.78 10/3/uL (0.21-1.20); PLATELET ESTIMATE ADQ (ADEQUATE); SEGMENTED NEUTROPHIL (0) 78 %; TOTAL NUCLEATED CELLS 100
[2017-03-13 05:48] LABS: RBC MORPHOLOGY NORM (NORMAL)
[2017-03-13 06:39] LABS: PROCALCITONIN 0.77 ng/mL (<0.5)
[2017-03-14 04:34] LABS: HEMATOCRIT 29.5 % (36.0-48.0); HEMOGLOBIN 9.4 g/dL (12.0-16.0); MEAN CORPUS HGB CONC 31.9 g/dL (32.0-36.0); MEAN CORPUSCULAR HEMOGLOB 28.3 pg (26.0-34.0); MEAN CORPUSCULAR VOLUME 88.9 fL (80-100); MEAN PLATELET VOLUME 8.3 fL (9.2-13.0); PLATELET COUNT 327 10/3/uL (150-400); RBC DISTRIBUTION WIDTH 16.3 % (12.0-16.0); RED CELL COUNT 3.32 10/6/uL (4.0-5.6)
[2017-03-14 04:35] LABS: MANUAL DIFF YES %
[2017-03-14 04:57] LABS: CALCIUM, SERUM 7.9 MG/DL (8.5-10.4); CHLORIDE, SERUM 119 MMOL/L (96-112); CO2 (CARBON DIOXIDE) 21 MMOL/L (24-34); CREATININE 0.65 MG/DL (0.55-1.02); GFR AFRICAN AMERICAN 101 ML/MIN (>=60); GFR NON AFRICAN AMERICAN 87 ML/MIN (>=60); POTASSIUM, SERUM 3.7 MMOL/L (3.5-5.3); PREALBUMIN 6.1 MG/DL (17.0-43.0); SODIUM, SERUM 149 MMOL/L (135-148)
[2017-03-14 05:02] LABS: BUN (BLOOD UREA NITROGEN) 33 MG/DL (6-23); GLUCOSE, SERUM 149 MG/DL (60-99); PHOSPHORUS, SERUM 2.1 MG/DL (2.5-4.5)
[2017-03-14 07:47] LABS: BAND NEUTROPHILS 17 %; LYMPHOCYTES 3 %; LYMPHOCYTES ABSOLUTE (CALC) 0.42 10/3/uL (0.67-4.30); MONOCYTES 7 %; MONOCYTES ABSOLUTE (CALC) 0.98 10/3/uL (0.21-1.20); PLATELET ESTIMATE ADQ (ADEQUATE); SEGMENTED NEUTROPHIL (0) 73 %; TOTAL NUCLEATED CELLS 100
[2017-03-14 07:48] LABS: RBC MORPHOLOGY NORM (NORMAL); TOXIC GRANULATION 1+
[2017-03-15 05:13] LABS: HEMATOCRIT 28.8 % (36.0-48.0); HEMOGLOBIN 9.1 g/dL (12.0-16.0); MEAN CORPUS HGB CONC 31.6 g/dL (32.0-36.0); MEAN CORPUSCULAR HEMOGLOB 28.3 pg (26.0-34.0); MEAN CORPUSCULAR VOLUME 89.7 fL (80-100); MEAN PLATELET VOLUME 8.4 fL (9.2-13.0); PLATELET COUNT 328 10/3/uL (150-400); RBC DISTRIBUTION WIDTH 16.2 % (12.0-16.0); RED CELL COUNT 3.21 10/6/uL (4.0-5.6)
[2017-03-15 05:19] LABS: MANUAL DIFF YES %
[2017-03-15 05:40] LABS: CALCIUM, SERUM 7.8 MG/DL (8.5-10.4); CHLORIDE, SERUM 118 MMOL/L (96-112); CO2 (CARBON DIOXIDE) 20 MMOL/L (24-34); CREATININE 0.56 MG/DL (0.55-1.02); GFR AFRICAN AMERICAN 106 ML/MIN (>=60); GFR NON AFRICAN AMERICAN 92 ML/MIN (>=60); GLUCOSE, SERUM 164 MG/DL (60-99); PHOSPHORUS, SERUM 1.8 MG/DL (2.5-4.5); POTASSIUM, SERUM 3.6 MMOL/L (3.5-5.3); SODIUM, SERUM 149 MMOL/L (135-148)
[2017-03-15 05:43] LABS: BUN (BLOOD UREA NITROGEN) 25 MG/DL (6-23)
[2017-03-15 07:19] LABS: BAND NEUTROPHILS 29 %; EOSINOPHILS 1 %; EOSINOPHILS ABSOLUTE (CALC) 0.12 10/3/uL (0.0-0.53); LYMPHOCYTES 7 %; LYMPHOCYTES ABSOLUTE (CALC) 0.84 10/3/uL (0.67-4.30); MONOCYTES 11 %; MONOCYTES ABSOLUTE (CALC) 1.32 10/3/uL (0.21-1.20); NEUTROPHILS ABSOLUTE (CALC) 9.72 10/3/uL (2.02-8.40); PLATELET ESTIMATE ADQ (ADEQUATE); SEGMENTED NEUTROPHIL (0) 52 %; TOTAL NUCLEATED CELLS 100
[2017-03-15 07:20] LABS: POLYCHROMASIA 1+ (2-5/OIF) (0-1/OIF); TEARDROP SHAPED RBCS OCC (0-2/OIF); TOXIC GRANULATION SLT; VACUOLATED NEUTROPHILES OCC
[2017-03-16 05:52] LABS: HEMATOCRIT 27.5 % (36.0-48.0); HEMOGLOBIN 8.7 g/dL (12.0-16.0); MEAN CORPUS HGB CONC 31.6 g/dL (32.0-36.0); MEAN CORPUSCULAR HEMOGLOB 28.2 pg (26.0-34.0); MEAN CORPUSCULAR VOLUME 89.3 fL (80-100); MEAN PLATELET VOLUME 8.3 fL (9.2-13.0); PLATELET COUNT 309 10/3/uL (150-400); RBC DISTRIBUTION WIDTH 16.1 % (12.0-16.0); RED CELL COUNT 3.08 10/6/uL (4.0-5.6); WHITE BLOOD CELLS 10.7 10/3/uL (4.5-10.5)
[2017-03-16 05:54] LABS: MANUAL DIFF YES %
[2017-03-16 06:15] LABS: BUN (BLOOD UREA NITROGEN) 22 MG/DL (6-23); CALCIUM, SERUM 7.7 MG/DL (8.5-10.4); CHLORIDE, SERUM 117 MMOL/L (96-112); CO2 (CARBON DIOXIDE) 23 MMOL/L (24-34); GFR AFRICAN AMERICAN 111 ML/MIN (>=60); GFR NON AFRICAN AMERICAN 95 ML/MIN (>=60); GLUCOSE, SERUM 194 MG/DL (60-99); PHOSPHORUS, SERUM 1.6 MG/DL (2.5-4.5); SODIUM, SERUM 145 MMOL/L (135-148); VANCOMYCIN TROUGH 19.3 MCG/ML (10.0-20.0)
[2017-03-16 06:53] LABS: BAND NEUTROPHILS 15 %; LYMPHOCYTES 11 %; LYMPHOCYTES ABSOLUTE (CALC) 1.18 10/3/uL (0.67-4.30); MONOCYTES 8 %; MONOCYTES ABSOLUTE (CALC) 0.86 10/3/uL (0.21-1.20); NEUTROPHILS ABSOLUTE (CALC) 8.67 10/3/uL (2.02-8.40); PLATELET ESTIMATE ADQ (ADEQUATE); SEGMENTED NEUTROPHIL (0) 66 %; TOTAL NUCLEATED CELLS 100
[2017-03-16 06:56] LABS: RBC MORPHOLOGY NORM (NORMAL)
[2017-03-17 05:05] LABS: HEMATOCRIT 26.6 % (36.0-48.0); HEMOGLOBIN 8.6 g/dL (12.0-16.0); MEAN CORPUS HGB CONC 32.3 g/dL (32.0-36.0); MEAN CORPUSCULAR HEMOGLOB 28.6 pg (26.0-34.0); MEAN CORPUSCULAR VOLUME 88.4 fL (80-100); MEAN PLATELET VOLUME 8.6 fL (9.2-13.0); PLATELET COUNT 357 10/3/uL (150-400); RED CELL COUNT 3.01 10/6/uL (4.0-5.6); WHITE BLOOD CELLS 9.4 10/3/uL (4.5-10.5)
[2017-03-17 05:07] LABS: MANUAL DIFF YES %
[2017-03-17 05:24] LABS: BUN (BLOOD UREA NITROGEN) 20 MG/DL (6-23); CALCIUM, SERUM 7.7 MG/DL (8.5-10.4); CHLORIDE, SERUM 113 MMOL/L (96-112); CO2 (CARBON DIOXIDE) 21 MMOL/L (24-34); GFR AFRICAN AMERICAN 119 ML/MIN (>=60); GFR NON AFRICAN AMERICAN 103 ML/MIN (>=60); GLUCOSE, SERUM 156 MG/DL (60-99); POTASSIUM, SERUM 4.1 MMOL/L (3.5-5.3); SODIUM, SERUM 144 MMOL/L (135-148)
[2017-03-17 06:34] LABS: BAND NEUTROPHILS 1 %; EOSINOPHILS 7 %; EOSINOPHILS ABSOLUTE (CALC) 0.66 10/3/uL (0.0-0.53); IMMATURE GRANS ABSOLUTE (CALC) 0.09 10/3/uL (0.0-0.11); LYMPHOCYTES 13 %; LYMPHOCYTES ABSOLUTE (CALC) 1.22 10/3/uL (0.67-4.30); MONOCYTES 3 %; MONOCYTES ABSOLUTE (CALC) 0.28 10/3/uL (0.21-1.20); MYELOCYTES 1 %; NEUTROPHILS ABSOLUTE (CALC) 7.14 10/3/uL (2.02-8.40); PLATELET ESTIMATE ADQ (ADEQUATE); RBC MORPHOLOGY NORM (NORMAL); SEGMENTED NEUTROPHIL (0) 75 %; TOTAL NUCLEATED CELLS 100
[2017-03-17 10:44] LABS: PROCALCITONIN 0.32 ng/mL (<0.5)
[2017-03-18 06:58] LABS: HEMATOCRIT 27.8 % (36.0-48.0); HEMOGLOBIN 8.9 g/dL (12.0-16.0); MEAN CORPUSCULAR HEMOGLOB 28.3 pg (26.0-34.0); MEAN CORPUSCULAR VOLUME 88.3 fL (80-100); MEAN PLATELET VOLUME 8.4 fL (9.2-13.0); PLATELET COUNT 358 10/3/uL (150-400); RBC DISTRIBUTION WIDTH 16.2 % (12.0-16.0); RED CELL COUNT 3.15 10/6/uL (4.0-5.6); WHITE BLOOD CELLS 7.1 10/3/uL (4.5-10.5)
[2017-03-18 07:02] LABS: MANUAL DIFF YES %
[2017-03-18 07:17] LABS: BUN (BLOOD UREA NITROGEN) 17 MG/DL (6-23); CALCIUM, SERUM 7.7 MG/DL (8.5-10.4); CHLORIDE, SERUM 109 MMOL/L (96-112); CO2 (CARBON DIOXIDE) 22 MMOL/L (24-34); CREATININE 0.37 MG/DL (0.55-1.02); GFR AFRICAN AMERICAN 122 ML/MIN (>=60); GFR NON AFRICAN AMERICAN 105 ML/MIN (>=60); GLUCOSE, SERUM 179 MG/DL (60-99); PHOSPHORUS, SERUM 2.6 MG/DL (2.5-4.5); POTASSIUM, SERUM 4.2 MMOL/L (3.5-5.3); PREALBUMIN 12.7 MG/DL (17.0-43.0); SODIUM, SERUM 139 MMOL/L (135-148); VANCOMYCIN TROUGH 18.6 MCG/ML (10.0-20.0)
[2017-03-18 07:31] LABS: BAND NEUTROPHILS 16 %; EOSINOPHILS 1 %; EOSINOPHILS ABSOLUTE (CALC) 0.07 10/3/uL (0.0-0.53); IMMATURE GRANS ABSOLUTE (CALC) 0.07 10/3/uL (0.0-0.11); LYMPHOCYTES 9 %; LYMPHOCYTES ABSOLUTE (CALC) 0.64 10/3/uL (0.67-4.30); METAMYELOCYTES 1 %; MONOCYTES 5 %; MONOCYTES ABSOLUTE (CALC) 0.36 10/3/uL (0.21-1.20); NEUTROPHILS ABSOLUTE (CALC) 5.96 10/3/uL (2.02-8.40); PLATELET ESTIMATE ADQ (ADEQUATE); SEGMENTED NEUTROPHIL (0) 68 %; TOTAL NUCLEATED CELLS 100
[2017-03-18 07:32] LABS: RBC MORPHOLOGY NORM (NORMAL)
[2017-03-18 07:35] LABS: PROCALCITONIN 0.26 ng/mL (<0.5)
[2017-03-19 05:20] LABS: HEMATOCRIT 29.2 % (36.0-48.0); HEMOGLOBIN 9.3 g/dL (12.0-16.0); MEAN CORPUS HGB CONC 31.8 g/dL (32.0-36.0); MEAN CORPUSCULAR HEMOGLOB 27.8 pg (26.0-34.0); MEAN CORPUSCULAR VOLUME 87.4 fL (80-100); MEAN PLATELET VOLUME 8.5 fL (9.2-13.0); PLATELET COUNT 406 10/3/uL (150-400); RBC DISTRIBUTION WIDTH 16.2 % (12.0-16.0); RED CELL COUNT 3.34 10/6/uL (4.0-5.6)
[2017-03-19 05:25] LABS: MANUAL DIFF YES %
[2017-03-19 05:35] LABS: BUN (BLOOD UREA NITROGEN) 19 MG/DL (6-23); CALCIUM, SERUM 7.9 MG/DL (8.5-10.4); CHLORIDE, SERUM 108 MMOL/L (96-112); CO2 (CARBON DIOXIDE) 26 MMOL/L (24-34); CREATININE 0.37 MG/DL (0.55-1.02); GFR AFRICAN AMERICAN 122 ML/MIN (>=60); GFR NON AFRICAN AMERICAN 105 ML/MIN (>=60); GLUCOSE, SERUM 146 MG/DL (60-99); PHOSPHORUS, SERUM 2.5 MG/DL (2.5-4.5); POTASSIUM, SERUM 4.5 MMOL/L (3.5-5.3); SODIUM, SERUM 141 MMOL/L (135-148)
[2017-03-19 06:52] LABS: BAND NEUTROPHILS 12 %; EOSINOPHILS 4 %; EOSINOPHILS ABSOLUTE (CALC) 0.28 10/3/uL (0.0-0.53); LYMPHOCYTES 8 %; LYMPHOCYTES ABSOLUTE (CALC) 0.56 10/3/uL (0.67-4.30); MONOCYTES 9 %; MONOCYTES ABSOLUTE (CALC) 0.63 10/3/uL (0.21-1.20); NEUTROPHILS ABSOLUTE (CALC) 5.53 10/3/uL (2.02-8.40); SEGMENTED NEUTROPHIL (0) 67 %; TOTAL NUCLEATED CELLS 100
[2017-03-19 06:53] LABS: PLATELET ESTIMATE SLT INC (ADEQUATE); RBC MORPHOLOGY NORM (NORMAL)
[2017-03-20 05:15] LABS: HEMATOCRIT 26.4 % (36.0-48.0); HEMOGLOBIN 8.7 g/dL (12.0-16.0); MEAN CORPUSCULAR HEMOGLOB 28.5 pg (26.0-34.0); MEAN CORPUSCULAR VOLUME 86.6 fL (80-100); MEAN PLATELET VOLUME 8.6 fL (9.2-13.0); PLATELET COUNT 448 10/3/uL (150-400); RBC DISTRIBUTION WIDTH 16.4 % (12.0-16.0); RED CELL COUNT 3.05 10/6/uL (4.0-5.6)
[2017-03-20 05:24] LABS: MANUAL DIFF YES %
[2017-03-20 05:47] LABS: CALCIUM, SERUM 7.9 MG/DL (8.5-10.4); CHLORIDE, SERUM 107 MMOL/L (96-112); CO2 (CARBON DIOXIDE) 27 MMOL/L (24-34); CREATININE 0.49 MG/DL (0.55-1.02); GFR AFRICAN AMERICAN 111 ML/MIN (>=60); GFR NON AFRICAN AMERICAN 96 ML/MIN (>=60); GLUCOSE, SERUM 140 MG/DL (60-99); POTASSIUM, SERUM 4.8 MMOL/L (3.5-5.3); SODIUM, SERUM 142 MMOL/L (135-148)
[2017-03-20 05:48] LABS: BUN (BLOOD UREA NITROGEN) 26 MG/DL (6-23)
[2017-03-20 06:51] LABS: BAND NEUTROPHILS 9 %; EOSINOPHILS 5 %; EOSINOPHILS ABSOLUTE (CALC) 0.35 10/3/uL (0.0-0.53); LYMPHOCYTES 13 %; LYMPHOCYTES ABSOLUTE (CALC) 0.91 10/3/uL (0.67-4.30); MONOCYTES 11 %; MONOCYTES ABSOLUTE (CALC) 0.77 10/3/uL (0.21-1.20); NEUTROPHILS ABSOLUTE (CALC) 4.97 10/3/uL (2.02-8.40); PLATELET ESTIMATE INC (ADEQUATE); RBC MORPHOLOGY NORM (NORMAL); SEGMENTED NEUTROPHIL (0) 62 %; TOTAL NUCLEATED CELLS 100
[2017-03-21 07:35] LABS: HEMATOCRIT 26.7 % (36.0-48.0); HEMOGLOBIN 8.6 g/dL (12.0-16.0); MANUAL DIFF YES %; MEAN CORPUS HGB CONC 32.2 g/dL (32.0-36.0); MEAN PLATELET VOLUME 8.3 fL (9.2-13.0); PLATELET COUNT 432 10/3/uL (150-400); RBC DISTRIBUTION WIDTH 16.8 % (12.0-16.0); RED CELL COUNT 3.07 10/6/uL (4.0-5.6); WHITE BLOOD CELLS 7.7 10/3/uL (4.5-10.5)
[2017-03-21 07:51] LABS: BUN (BLOOD UREA NITROGEN) 25 MG/DL (6-23); CALCIUM, SERUM 8.5 MG/DL (8.5-10.4); CHLORIDE, SERUM 106 MMOL/L (96-112); CO2 (CARBON DIOXIDE) 28 MMOL/L (24-34); CREATININE 0.49 MG/DL (0.55-1.02); GFR AFRICAN AMERICAN 111 ML/MIN (>=60); GFR NON AFRICAN AMERICAN 96 ML/MIN (>=60); GLUCOSE, SERUM 153 MG/DL (60-99); POTASSIUM, SERUM 4.7 MMOL/L (3.5-5.3); SODIUM, SERUM 141 MMOL/L (135-148)
[2017-03-21 08:02] LABS: BAND NEUTROPHILS 11 %; EOSINOPHILS 3 %; EOSINOPHILS ABSOLUTE (CALC) 0.23 10/3/uL (0.0-0.53); LYMPHOCYTES 14 %; LYMPHOCYTES ABSOLUTE (CALC) 1.08 10/3/uL (0.67-4.30); MONOCYTES 10 %; MONOCYTES ABSOLUTE (CALC) 0.77 10/3/uL (0.21-1.20); NEUTROPHILS ABSOLUTE (CALC) 5.62 10/3/uL (2.02-8.40); PLATELET ESTIMATE SLT INC (ADEQUATE); RBC MORPHOLOGY NORM (NORMAL); SEGMENTED NEUTROPHIL (0) 62 %; TOTAL NUCLEATED CELLS 100
[2017-03-22 07:37] LABS: HEMATOCRIT 29.1 % (36.0-48.0); HEMOGLOBIN 9.2 g/dL (12.0-16.0); MEAN CORPUS HGB CONC 31.6 g/dL (32.0-36.0); MEAN CORPUSCULAR HEMOGLOB 27.9 pg (26.0-34.0); MEAN CORPUSCULAR VOLUME 88.2 fL (80-100); MEAN PLATELET VOLUME 8.6 fL (9.2-13.0); PLATELET COUNT 533 10/3/uL (150-400); RBC DISTRIBUTION WIDTH 17.1 % (12.0-16.0); WHITE BLOOD CELLS 8.6 10/3/uL (4.5-10.5)
[2017-03-22 07:47] LABS: MANUAL DIFF YES %
[2017-03-22 07:56] LABS: BUN (BLOOD UREA NITROGEN) 29 MG/DL (6-23); CALCIUM, SERUM 8.5 MG/DL (8.5-10.4); CHLORIDE, SERUM 105 MMOL/L (96-112); CO2 (CARBON DIOXIDE) 29 MMOL/L (24-34); CREATININE 0.52 MG/DL (0.55-1.02); GFR AFRICAN AMERICAN 109 ML/MIN (>=60); GFR NON AFRICAN AMERICAN 94 ML/MIN (>=60); GLUCOSE, SERUM 124 MG/DL (60-99); POTASSIUM, SERUM 4.9 MMOL/L (3.5-5.3); SODIUM, SERUM 140 MMOL/L (135-148)
[2017-03-22 08:03] LABS: ANISOCYTOSIS 1+ (5-10/OIF) (0-5/OIF); BAND NEUTROPHILS 16 %; EOSINOPHILS 3 %; EOSINOPHILS ABSOLUTE (CALC) 0.26 10/3/uL (0.0-0.53); LYMPHOCYTES 14 %; MONOCYTES 11 %; MONOCYTES ABSOLUTE (CALC) 0.95 10/3/uL (0.21-1.20); NEUTROPHILS ABSOLUTE (CALC) 6.19 10/3/uL (2.02-8.40); PLATELET ESTIMATE SLT INC (ADEQUATE); SEGMENTED NEUTROPHIL (0) 56 %; TOTAL NUCLEATED CELLS 100
[2017-03-22 08:04] LABS: HELMET CELLS OCC (0-2/OIF); HYPOCHROMIA 1+ (3-10/OIF) (0-2/OIF); POLYCHROMASIA 1+ (2-5/OIF) (0-1/OIF); TEARDROP SHAPED RBCS OCC (0-2/OIF)
[2017-03-22] MEDS ORDERED: TRANSSCOP TOP (16:26)
[2017-03-22] MEDS ORDERED: VANCOCIN HCL125 MG PO (16:28)
[2017-05-05] MEDS ORDERED: ACET500CAP PEG (11:38)
[2017-05-05] MEDS ORDERED: KLOR-CON20 MEQ PEG (11:39)
[2017-05-05] MEDS ORDERED: PREDNISONE2.5 MG PEG (11:40)
[2017-05-05] MEDS ORDERED: PLAQ200B PEG (11:40)
[2017-05-05] MEDS ORDERED: VITC500 PEG (11:41)
[2017-05-05] MEDS ORDERED: SUCR PO (11:41)
[2017-05-05] MEDS ORDERED: LOP50 PEG (11:41)
[2017-05-05] MEDS ORDERED: FOLIC PEG (11:41)
[2017-05-05] MEDS ORDERED: DUONEB INH (11:42)
[2017-05-05] MEDS ORDERED: ZOCOR20 PEG (11:43)
[2017-05-05] MEDS ORDERED: FLORASTOR250 MG PO (11:44)
== END 2017-03-22 18:43 | disposition home or self-care (01) | DRG 853 ==
LOC: ER 17:03 → IMCU 19:07 → 7NO 03-20 16:12
PROVIDERS: Hospitalist; Internal Medicine; Physician Assistant Medical
PROC: 0HBDXZZ Excision of Right Lower Arm Skin, External Approach (ICD-10-PCS; principal; 2017-03-17)
PROC: 02HV33Z Insertion of Infusion Device into Superior Vena Cava, Percutaneous Approach (ICD-10-PCS; 2017-03-18)
PROC: 4A02X4A Measurement of Cardiac Electrical Activity, Guidance, External Approach (ICD-10-PCS; 2017-03-18)
DX: A41.9 Sepsis, unspecified organism (principal); J69.0 Pneumonitis due to inhalation of food and vomit; J96.21 Acute and chronic respiratory failure with hypoxia; E43 Unspecified severe protein-calorie malnutrition; L89.014 Pressure ulcer of right elbow, stage 4; L89.152 Pressure ulcer of sacral region, stage 2; A04.7 Enterocolitis due to Clostridium difficile; M06.9 Rheumatoid arthritis, unspecified; I69.320 Aphasia following cerebral infarction; K27.9 Peptic ulcer, site unspecified, unspecified as acute or chronic, without hemorrhage or perforation; J44.9 Chronic obstructive pulmonary disease, unspecified; K76.0 Fatty (change of) liver, not elsewhere classified; E83.42 Hypomagnesemia; I69.391 Dysphagia following cerebral infarction; R13.12 Dysphagia, oropharyngeal phase; Z79.899 Other long term (current) drug therapy; Z93.1 Gastrostomy status; Z87.01 Personal history of pneumonia (recurrent); Z88.6 Allergy status to analgesic agent; Z87.891 Personal history of nicotine dependence; Z83.3 Family history of diabetes mellitus; Z79.52 Long term (current) use of systemic steroids; Z68.20 Body mass index [BMI] 20.0-20.9, adult; Z66 Do not resuscitate
CPT/HCPCS: 36569; 71010; 80048; 80053; 80202; 81001; 82805; 83605; 83735; 83880; 84100; 84134; 84145; 84443; 84484; 85025; 85610; 85730; 87040; 87077; 87086; 87150; 87186; 87449; 87641; 93005; 94640; 96374; 97110-GO; 97166-GO; 97530-GO; 99285; A9270-GY; C1751; C9113; G0463; G8987-CN-GO; G8988-CN-GO; J0692; J3370; J3475; J8610

== ENCOUNTER 2017-04-14 15:59 | Emergency (ER) | payer MEDICARE, OTHER ==
[~2017-04-14 15:59] MED LIST changes: +TRANSSCOP TOP; +VANCOCIN HCL125 MG PO
[2017-05-05] MEDS ORDERED: ACET500CAP PEG (11:38)
[2017-05-05] MEDS ORDERED: KLOR-CON20 MEQ PEG (11:39)
[2017-05-05] MEDS ORDERED: PLAQ200B PEG (11:40)
[2017-05-05] MEDS ORDERED: PREDNISONE2.5 MG PEG (11:40)
[2017-05-05] MEDS ORDERED: VITC500 PEG (11:41)
[2017-05-05] MEDS ORDERED: LOP50 PEG (11:41)
[2017-05-05] MEDS ORDERED: SUCR PO (11:41)
[2017-05-05] MEDS ORDERED: FOLIC PEG (11:41)
[2017-05-05] MEDS ORDERED: DUONEB INH (11:42)
[2017-05-05] MEDS ORDERED: ZOCOR20 PEG (11:43)
[2017-05-05] MEDS ORDERED: FLORASTOR250 MG PO (11:44)
== END 2017-04-14 16:10 | disposition home or self-care (01) ==
LOC: ER 15:59
PROC: 0D20XUZ Change Feeding Device in Upper Intestinal Tract, External Approach (ICD-10-PCS; principal; 2017-04-14)
PROC: 0JBG0ZZ Excision of Right Lower Arm Subcutaneous Tissue and Fascia, Open Approach (ICD-10-PCS; 2017-04-14)
DX: Z43.1 Encounter for attention to gastrostomy (principal); L89.014 Pressure ulcer of right elbow, stage 4; L89.899 Pressure ulcer of other site, unspecified stage; M19.021 Primary osteoarthritis, right elbow; G46.4 Cerebellar stroke syndrome; Z88.6 Allergy status to analgesic agent; Z79.52 Long term (current) use of systemic steroids; Z79.2 Long term (current) use of antibiotics; Z79.899 Other long term (current) drug therapy
CPT/HCPCS: 11042; 11045; 99282